=== PATIENT | female | born 1940 | race Caucasian/White ===

== ENCOUNTER 2021-03-14 22:49 | Inpatient (IN) | payer OTHER ==
[~2021-03-14] VITALS: Ht 154.9 cm; Wt 59.4 kg
--- NOTE | ~2021-03-14 | EMS ---
[address] [address] EMS Patient Care Report Name: TONG TOTH Room #: REG SHEA Hearn#: [id number] Admission: 03/14/21 Attend Phys: Discharge: Date of : 36 Report #: [id number] THIS REPORT FOR: //name// Report Transmitted: 03/14/2021 22:53 EMS Care Summary [place], [place]/[facility] Incident [id number] @ 03/14/2021 22:05 Incident Location [address] [place] [address] Patient TONG TOTH Female, 80 Years 1940 Patient Address [address] [place] [address] Patient History Hypertension (HTN),Cardiac Condition - Other,Atrial Fibrillation, Patient Allergies No known allergies, Patient Medications Pravastatin, Diltiazem, Lisinopril, Digoxin, Carvedilol, Warfarin, Chief Complaint WEAKNESS Disposition Transported No Lights/[place] Dispatch Reason Chest Pain (Non-Traumatic) Transported To [facility] Narrative UPON ARRIVAL PT SUPINE IN BED CONSCIOUS AND ALERT. PT HAS BEEN INCREASINGLY WEAK FOR A MONTH NOW. IT HAS BECOME WORSE THE PAST 2 DAYS. PT UNABLE TO GET OUT OF BED WITHOUT FAMILY ASSISTANCE. PT HAS ALSO BEEN HAVING DRY HEAVES TODAY AND HASN'T EATEN ANYTHING. PT HAS A HX OF A-FIB AND IS CURRENTLY AFIB RVR. PT HAS [address] [address] EMS Patient Care Report Name: TONG TOTH Room #: REG [facility]#: [id number] Admission: 03/14/21 Attend Phys: Discharge: Date of : 38 Report #: [id number] BEEN OUT OF ALL OF HER MEDICATIONS FOR OVER A MONTH. PT WILL HAVE CHEST PAIN ON AND OFF AND WILL BE SOB ON AND OFF. PT CURRENTLY NOT C/O EITHER. PT CARRIED TO COT VIA HEAD TENNIS COACH. TRANSPORTED Initial Vitals @22:19P: 148,CO: 1,SpO2: 94, @22:17P: 137,SpO2: 94, @22:21P: 169,SpO2: 93, @22:42P: 195,BP: 149/85,CO: 1,SpO2: 91, @22:16P: 144,CO: 0,SpO2: 92, @22:17P: 157,SpO2: 94, @22:30P: 177,SpO2: 88, @22:28P: 153,SpO2: 84, @22:34P: 160,BP: 113/73,Glucose: 129,SpO2: 95, @22:14P: 167,R: 20,BP: 141/92,Pain: 0/10,GCS: 15,CO: 0,SpO2: 92,Revised Trauma: 12, Assessments @22:15MENTAL:Person Oriented,Event Oriented,Place Oriented,Time Oriented,SKIN:HEENT:Head/Face: No Abnormalities,LUNG SOUNDS:General: Nausea,ABDOMEN:General: Nausea,PELVIS//GI:EXTREMITIES:Left Leg: Weakness,Right Leg: Weakness,Left Arm: No Abnormalities,Right Arm: No Abnormalities,PULSE:Radial: 1+ Thready,NEURO:No Abnormalities, Impression Generalized Weakness Procedures @22:17 12-Lead ECG Response: UnchangedFailed @22:19 12-Lead ECG Response: UnchangedSucceeded @22:30 IV Therapy - Saline Lock 10cc (22 ga) Site: Hand-Left Response: UnchangedSucceeded @22:16 3-Lead ECG Response: UnchangedSucceeded Timeline 22:03,Call Received 22:03,Dispatch Notified 22:05,Dispatched 22:07,En Route 22:10,On Scene 22:11,At Patient 22:14,BP: 141/92 M,PULSE: 167,RR: 20 R,SPO2: 92 Ox,ETCO2: ,BG: ,PAIN: 0,GCS: 15, 22:16,3-Lead ECG,Response: UnchangedSucceeded, 22:16,BP: / M,PULSE: 144,RR: R,SPO2: 92 Ox,ETCO2: ,BG: ,PAIN: ,GCS: , [facility] [address] [place] [address] EMS Patient Care Report Name: TONG TOTH Room #: REG [facility].R.#: [id number] Admission: 03/14/21 Attend Phys: Discharge: Date of : 36 Report #: [id number] 22:17,BP: / M,PULSE: 157,RR: R,SPO2: 94 Ox,ETCO2: ,BG: ,PAIN: ,GCS: , 22:17,12-Lead ECG,Response: UnchangedFailed, 22:17,BP: / M,PULSE: 137,RR: R,SPO2: 94 Ox,ETCO2: ,BG: ,PAIN: ,GCS: , 22:19,12-Lead ECG,Response: UnchangedSucceeded, 22:19,BP: / M,PULSE: 148,RR: R,SPO2: 94 Ox,ETCO2: ,BG: ,PAIN: ,GCS: , 22:21,BP: / M,PULSE: 169,RR: R,SPO2: 93 Ox,ETCO2: ,BG: ,PAIN: ,GCS: , 22:28,BP: / M,PULSE: 153,RR: R,SPO2: 84 Ox,ETCO2: ,BG: ,PAIN: ,GCS: , 22:30,IV Therapy - Saline Lock 10cc 22 ga Site: Hand-Left,Response: UnchangedSucceeded, 22:30,BP: / M,PULSE: 177,RR: R,SPO2: 88 Ox,ETCO2: ,BG: ,PAIN: ,GCS: , 22:33,Depart Scene 22:34,BP: 113/73 M,PULSE: 160,RR: R,SPO2: 95 Ox,ETCO2: ,B,PAIN: ,GCS: , 22:42,BP: 149/85 M,PULSE: 195,RR: R,SPO2: 91 Ox,ETCO2: ,BG: ,PAIN: ,GCS: , 22:45,At Destination 23:02,Call Closed Disclaimer v1.1 Copyright 2020 [employer] This EMS Care Summary contains data elements from the applicable legal record (which may be displayed differently). It is designed to provide pertinent information for the following purposes: continuity of care, clinical quality, and state data reporting. The complete legal record is available to ED staff and administrators of the receiving hospital in [employer] Patient Tracker. All data is provided "as is."
[~2021-03-14 22:49] MED LIST: ACETAMINOPHEN325 M1 PO; ALDACTONE25 MG PO; ASPIRIN EC325 M1; ASPIRIN EC325 M1 PO; ASPIRIN EC81 M1 PO; CARDIZEM CD120 MG PO; CARVEDILOL6.25 MG PO; CEFTIN 250 MG250 MG PO; COLACE 100 MG100 MG PO; COREG6.25 MG PO; COUMADIN 3 MG TA3 MG PO; DIGOXIN125 MCG PO; FUROSEMIDE 40 M40 M1 PO; LANOXIN 0.120.125 M1 PO; LISINOPRIL2.5 MG PO; NOHOMEMEDICATIONS; PRAVACHOL 20 MG20 M1 PO; PRAVACHOL20 MG PO; PRAVACHOL40 MG PO; PRINIVIL5 MG PO; ZOFRAN 4 MG ORAL4 MG PO
[2021-03-14 22:51] VITALS: BP 127/94
[2021-03-14 23:52] LABS: URINE BILIRUBIN 2+ (Negative); URINE BLOOD NEGATIVE (Negative); URINE CLARITY CLEAR; URINE COLOR YELLOW; URINE GLUCOSE-RANDOM* NEGATIVE (Negative); URINE KETONES NEGATIVE (Negative); URINE LEUKOCYTES-REFLEX NEGATIVE (Negative); URINE NITRITE-REFLEX NEGATIVE (Negative); URINE PROTEIN (DIPSTICK) TRACE (Negative); URINE SPECIFIC GRAVITY >= 1.030 (1.005-1.035)
[2021-03-14 23:54] LABS: ABSOLUTE NEUTROPHILS 12.2 thou/uL (1.4-8.2); HEMATOCRIT 52.3 % (37.0-47.0); HEMOGLOBIN 16.5 gm/dL (12.0-15.0); MCHC 31.5 g/dL (28.0-37.0); MCV 98.5 fL (80.0-100.0); MONOCYTES 7.5 % (1.0-8.0); PLATELET COUNT 130 thou/uL (150-400); POLYS 89.5 % (36.0-66.0); RBC 5.31 mil/uL (4.20-5.00); RDW 15.6 % (10.5-14.5); WBC 13.6 thou/uL (4.0-11.0)
[2021-03-15] VITALS (7 sets, daily range): BP systolic 101–131; BP diastolic 53–71
[2021-03-15 00:35] LABS: INR 2.09
[2021-03-15 00:43] LABS: ALBUMIN 2.9 g/dL (3.4-5.0); CALCIUM 8.8 mg/dL (8.5-10.1); CREATININE 1.9 mg/dL (0.6-1.0); MAGNESIUM 2.5 mg/dL (1.8-2.4); TOTAL BILIRUBIN 5.5 mg/dL (0.2-1.0); TOTAL PROTEIN 6.8 g/dL (6.4-8.2)
[2021-03-15] MEDS ORDERED: WARFARIN SODIUM4 MG PO (01:39)
[2021-03-15] MEDS ORDERED: DIGOX250 MCG PO (01:39)
[2021-03-15 03:34] LABS: CALCIUM 8.8 mg/dL (8.5-10.1); CREATININE 1.7 mg/dL (0.6-1.0)
[2021-03-15 03:37] LABS: POTASSIUM 5.8 mmol/L (3.5-5.1)
--- NOTE | 2021-03-15 08:02 | NUR ---
PATIENT IS A NEW ADMISSION TO THE UNIT THIS SHIFT. SHE ARRIVED VIA CART FROM THE ER AND WAS TRANSFERRED TO THE BED WITHOUT INCIDENT. PATIENT IS FULLY ALERT AND ORIENTED AND ABLE TO PARTICIPATE IN ADMISSION. PATIENT EXHIBITS ACCELERATED ATRIAL FIB ON THE MONITOR AND HAS BEEN ON CARDIZEM GTT SINCE ARRIVING TO THE UNIT. ONE TIME ORDER OF LOPRESSOR GIVEN TO LIMITED EFFECTIVENESS. NURSING IS UNABLE TO OBTAIN SECOND IV ACCESS AND HAS CONSULTED IV TEAM. NURSE TO COMPLETE ADMISSION AND INITIATE PLAN OF CARE.
[2021-03-15 08:49] LABS: HEMATOCRIT 49.1 % (37.0-47.0); HEMOGLOBIN 15.6 gm/dL (12.0-15.0); MCH 30.9 pg (26.0-34.0); MCHC 31.7 g/dL (28.0-37.0); MCV 97.3 fL (80.0-100.0); RBC 5.04 mil/uL (4.20-5.00); RDW 15.2 % (10.5-14.5); WBC 13.1 thou/uL (4.0-11.0)
[2021-03-15 09:07] LABS: CREATININE 1.7 mg/dL (0.6-1.0)
[2021-03-15 09:13] LABS: CHOLESTEROL 129 mg/dL (<200); HDL CHOLESTEROL 11 mg/dL (>40); LDL CHOLESTEROL 90 mg/dL (<100); TC:HDL 11.7 Ratio (Not establshd); TRIGLYCERIDE 140 mg/dL (<150); VLDL 28 mg/dL (<40)
[2021-03-15 09:20] LABS: POTASSIUM 4.4 mmol/L (3.5-5.1)
--- NOTE | 2021-03-15 09:59 | EKG ---
[place] [address] [facility] [place] [address] ELECTROCARDIOGRAM REPORT Name: TONG TOTH Room #: 213-P ADM IN M.R.#: [id number] Admission: 03/15/21 Attend Phys: Akil Martin MD Discharge: Date of : 38 Report #: [id number] [facility] ED Test Date: 2021-03-14 Test Time: 22:54:22 Pat Name: TONG TOTH Department: Room: 213 Gender: F Frame Opener: riki : 1940 Requested By: Carole Todd Order Number: [id number] MD: Bernabe Alfredo Measurements Intervals [place] Rate: 174 P: -70 ME: 74 QRS: -113 QRSD: 133 T: 45 QT: 305 QTc: 519 Interpretive Statements Atrial fibrillation RBBB and LAFB Compared to ECG 03/10/2013 08:38:47 Left anterior fascicular block now present T-wave abnormality no longer present Possible ischemia no longer present Electronically Signed On 03-15-2021 9:58:58 PUBLIC RELATIONS DIRECTOR by Bernabe Alfredo [email or web address] <ELECTRONICALLY SIGNED> By: Bernabe Alfredo MD 03/15/21 0958 Bernabe Alfredo MD /MARÍA
[2021-03-15 15:58] LABS: APTT 38.3 Seconds (24.5-32.8)
[2021-03-15 17:06] LABS: FOLIC ACID 15.4 ng/mL (8.6-58.9)
--- NOTE | 2021-03-15 18:28 | NUR ---
PT REMAINS ON CARDIZEM FOR AFIB WITH A RATE GREATER THAN 100. CARDIZEM IS RUNNING AT 20. PT STATED TO PHYSICAL THERAPY TODAY THAT SHE WAS SEEING NAKED PEOPLE IN THE TREES OUTSIDE HER WINDOW. OTHERWISE PT REMAINED ALERTAND ANSWERED QUESTIONS APPROPRIATELY. PHYSICIAN WAS NOTIFIED.
[2021-03-15 22:06] LABS: CA 125 564.8 U/mL (0.0-38.1)
[2021-03-15 23:06] LABS: T4 (THYROXINE) 4.7 ug/dL (4.5-12.0)
[2021-03-16 02:15] LABS: CALCIUM 8.4 mg/dL (8.5-10.1); CREATININE 1.4 mg/dL (0.6-1.0)
[2021-03-16 02:17] LABS: ALBUMIN 2.4 g/dL (3.4-5.0); DIRECT BILIRUBIN 4.3 mg/dL (<0.1-0.2); TOTAL BILIRUBIN 5.7 mg/dL (0.2-1.0); TOTAL PROTEIN 5.3 g/dL (6.4-8.2)
[2021-03-16 02:21] LABS: POTASSIUM 3.1 mmol/L (3.5-5.1)
[2021-03-16 04:06] VITALS: BP 114/71
[2021-03-16 06:07] LABS: CERULOPLASMIN 39.5 mg/dL (19.0-39.0)
[2021-03-16 07:30] VITALS: BP 122/64
--- NOTE | 2021-03-16 10:27 | HC ---
[facility] [place] [address] CONSULTATION Name: TONG TOTH Room #: 213-P ADM IN ..#: [id number] Admission: 03/15/21 Attend Phys: Akil Martin MD Discharge: Date of : 38 Report #: [id number] THIS REPORT FOR: cc: [facility] - Clinic physician unknown [facility] - Clinic physician unknown Shai Chacko MD ~ cc: Akil Martin MD DATE OF SERVICE: 03/15/2021 HISTORY OF PRESENT ILLNESS: The patient is an 80-year-old female who was admitted with increasing shortness of breath. She is a fairly good historian. Apparently has not been taking any of her medications for the last 10 months, has not seen a physician for a long period of time as well. She has a history of coronary artery disease, status post CABG, previous mitral valve repair in the past. She was noted to be in AFib with RVR. Here, she is on Cardizem. At this time, Cardiology is following. She also has lower extremity edema. Reason for GI consultation is elevated liver function tests. The patient denies any abdominal pain in general. Apparently, she has had a few episodes of nausea and vomiting recently and somewhat decreased appetite. Her bilirubin is 5.5. She denies any history of liver disease. Her last bilirubin to compare was 1.4 in 2012. She denies any history of alcohol. A CT scan of her abdomen and pelvis was performed on admission. Gallbladder showed cholelithiasis, normal caliber bile ducts were seen. There is a cystic lesion arising in the pancreas in the pancreatic body, 2.8 cm in size. Changes of thickening of the urinary bladder consistent with cystitis, also noted. Diffuse anasarca seen. Diverticulosis, no evidence of diverticulitis. Again, the patient denies any right upper quadrant abdominal pain after eating. She states her bowel movements have been fairly normal. Denies any obvious blood in her stools. She is currently on 2 liters of nasal cannula oxygen. She is not on oxygen at home. CT of the chest shows bilateral small pleural effusions, cardiomegaly is noted. An ultrasound of the abdomen has been ordered today. Bilateral lower extremity Dopplers, no evidence of DVT. PAST MEDICAL HISTORY: Coronary artery disease, history of CABG x 4, mitral valve repair in the past, chronic renal insufficiency, AFib, history of hyperlipidemia, hypertension. MEDICATIONS: In the past, Coreg, Cardizem, lisinopril, Pravachol, warfarin; however, the patient apparently has not been taking any medications again for the last 10 months. REVIEW OF SYSTEMS: As per HPI. FAMILY HISTORY: Negative for colon cancer. [address] [address] CONSULTATION Name: TONG TOTH Room #: 213-P [facility] IN ..#: [id number] Admission: 03/15/21 Attend Phys: Akil Martin MD Discharge: Date of : 38 Report #: [id number] SOCIAL HISTORY: She denies any tobacco or alcohol use. PHYSICAL EXAMINATION: VITAL SIGNS: Temperature is 36.5, pulse 62, blood pressure 128/53, respiratory rate is 20. GENERAL: She is alert, in no acute distress. HEENT: Sclerae, mildly icteric. Oropharynx clear. NECK: Supple, without lymphadenopathy. CARDIOVASCULAR: Regular rate. CHEST: With decreased breath sounds in the bases bilaterally. ABDOMEN: Soft. She is nontender, nondistended. Normoactive bowel sounds. EXTREMITIES: +1-2 pitting edema of the lower extremities bilaterally. LABORATORY DATA: WBC is 13.1, hemoglobin 15.6, platelet count is 115. INR is 2.0. Sodium 129, potassium 4.4, chloride 96, bicarbonate 19, BUN 67, creatinine 1.7, glucose 164. Lactic acid level 2.8. Total bilirubin 5.5, direct 4.3, AST is 130, ALT 115. 2+ bilirubin, wbc's 6-15, bacteria 1 to 9. ASSESSMENT AND PLAN: Elevated liver function tests. CT showing evidence of cholelithiasis, bile duct is not dilated, may need to consider MRCP in the near future for further evaluation to rule out common bile duct stone. Ultrasound has been ordered and is pending at this time. The patient denies any history of abdominal pain. No history of liver disease. She may have chronic liver disease, as her INR is also elevated and has apparently not been taking Coumadin recently. Also noted was a pancreatic cystic lesion. We will obtain further labs. MRI can be helpful as well for further evaluation. This involves the body of the pancreas and again the common bile duct does not appear to be dilated on the CT. Agree with antibiotics and monitoring liver function tests at this time. We will continue to follow. Thank you for allowing me to participate in her care. <ELECTRONICALLY SIGNED> By: Shai Chacko MD 03/16/21 1027 [id number] [id number] Shai Chacko MD /nt
[2021-03-16 11:06] LABS: CEA 4.3 ng/mL (0.0-4.7)
[2021-03-16 11:30] VITALS: BP 108/56
--- NOTE | 2021-03-16 11:45 | NUR ---
TITRATED CARDIZEM FROM 20 TO 15 AT 0830. HEART RATE MAINTAINED 90'S TO 100. TITRATED CARDIZEM FROM 15 TO 10 AT 1000AM. HEART RATE HAS MAINTAINED. WILL CONTINUE TO MONITOR.
[2021-03-16 16:00] VITALS: BP 112/60
--- NOTE | 2021-03-16 17:27 | NUR ---
PT RESTED IN BED SLEEPING ON AND OFF ALL SHIFT. EASY TO AROUSE, ANSWERS PERSON, TIME QUESTIONS. GETS CONFUSED ON LOCATION. PT ALSO CONTINUES TO HAVE VISUAL HALUCINATIONS. MORALES CATHETER URINE STOPPED, REQUIRING IRRIGATION NO FURTHER ISSUES FROM MORALES.
[2021-03-16 20:15] VITALS: BP 119/52
--- NOTE | 2021-03-16 21:05 | NUR ---
UPON INITIAL ASSESSMENT PATIENT CONFUSED AND UPSET "WANTING TO BE LEFT ALONE". PATIENT DID ALLOW NURSE TO COMPLETE QUICK ASSESSMENT AND THEN STATED SHE "WANTS TO BE LEFT ALONE". PATIENT IS CONFUSED AND NURSE MADE SURE ENVIROMENT IS SAFE.
[2021-03-16 22:29] VITALS: BP 101/70
--- NOTE | 2021-03-16 23:09 | NUR ---
PATIENTS SON CLAYTON CALLED UNIT TO INQUIRE ABOUT MOTHERS CONDITION. NURSE GAVE FAMILY UPDATED INFORMATION REGARDING HER STATUS. PATIENTS SON WISHES TO BE CALLED BY PROVIDER FOR MORE IN DEPTH REPORT. NURSE TO RELAY REQUEST TOMORROW DURING END OF SHIFT REPORT. PATIENTS SON ALSO ADAMANT THAT SISTER DK NOT BE GIVEN INFORMATION REGARDING MOTHERS STATUS DUE TO ESTRANGEMENT. PATIENT IS ALERT TO SELF ONLY AND IS UNABLE TO VOICE DESIRE. NURSE TO RELAY THIS INFORMATION TO ONCOMING NURSE WELL.
[2021-03-17] VITALS (8 sets, daily range): BP systolic 94–118; BP diastolic 60–82
--- NOTE | 2021-03-17 02:54 | NUR ---
PATIENTS CARDIZEM GTT STOPPED AT 0110 DUE TO SBP < 100 AND PATIENT STATING "DIZZINESS". PATIENT STILL IN ATRIAL FIB WITH RATE CONTROLLED. PROVIDER CONTACTED WITH ALBUMIN GIVEN.
[2021-03-17 04:48] LABS: ABSOLUTE NEUTROPHILS 10.8 thou/uL (1.4-8.2); BASOPHILS 0.8 % (0.0-2.0); EOSINOPHILS 0.1 % (0.0-3.0); HEMATOCRIT 42.9 % (37.0-47.0); HEMOGLOBIN 14.1 gm/dL (12.0-15.0); LYMPHOCYTES 1.2 % (24.0-44.0); MCH 31.4 pg (26.0-34.0); MCHC 32.8 g/dL (28.0-37.0); MCV 95.7 fL (80.0-100.0); MONOCYTES 7.1 % (1.0-8.0); PLATELET COUNT 51 thou/uL (150-400); POLYS 90.8 % (36.0-66.0); RBC 4.48 mil/uL (4.20-5.00); RDW 15.3 % (10.5-14.5); WBC 11.9 thou/uL (4.0-11.0)
[2021-03-17 05:12] LABS: INR 1.53; PROTIME 16.3 Seconds (10.5-12.1)
[2021-03-17 05:46] LABS: CALCIUM 8.4 mg/dL (8.5-10.1); CREATININE 1.6 mg/dL (0.6-1.0); MAGNESIUM 1.9 mg/dL (1.8-2.4); PHOSPHORUS 1.9 mg/dL (2.5-4.9); POTASSIUM 3.4 mmol/L (3.5-5.1); TOTAL BILIRUBIN 5.5 mg/dL (0.2-1.0); TOTAL PROTEIN 6.3 g/dL (6.4-8.2)
--- NOTE | 2021-03-17 11:17 | NUR ---
Assumed care of pt this AM. Pt at beginning of shift oriented x3, up to eat breakfast. On 6L NC, AFib on the monitor. Pt denies any pain but frequently is grabbing abd & writhing in bed. Towards lunch, pt started to become restless, confused. Not currently pulling on any lines & is keeping O2 in appropriately. Pt keeps stating that she is "hot". 1500mL fluid restriction in place. Provider notified. Provider notified that son, Serge, wants to speak w/ Dr in regards to care. Dr. Flynn called son & left for call back. Will continue frequent observation.
[2021-03-17 11:35] LABS: BE(vivo) 0.1 mmol/L (-2 to +3); HCO3 23.3 mmol/L (22.0-26.0); PCO2 33.8 mmHg (35.0-45.0); PO2 83.5 mmHg (80.0-100.0); pH 7.456 (7.360-7.450); sO2 96.8 % (92.0-98.0)
[2021-03-17 14:10] LABS: HEMATOCRIT 40.3 % (37.0-47.0); HEMOGLOBIN 12.7 gm/dL (12.0-15.0); MCH 30.4 pg (26.0-34.0); MCHC 31.6 g/dL (28.0-37.0); MCV 96.3 fL (80.0-100.0); RBC 4.19 mil/uL (4.20-5.00); RDW 15.4 % (10.5-14.5); WBC 12.2 thou/uL (4.0-11.0)
[2021-03-17 14:15] LABS: CALCIUM 7.3 mg/dL (8.5-10.1); CREATININE 1.4 mg/dL (0.6-1.0)
[2021-03-17 14:37] LABS: POTASSIUM 2.7 mmol/L (3.5-5.1)
[2021-03-18 03:51] VITALS: BP 127/79
--- NOTE | 2021-03-18 05:41 | NUR ---
ASSESSMENT DOCUMENTED.PT BEEN RESTING IN NO ACUTE DISTRESS.A/OX3 WITH INTERMITTENT CONFUSION.AFEBRILE.VSS.AFIB/BBB W/CONTROLLED RATE ON MONITOR.ON O2 5L/NC,NO RESP DISTRESS NOTED OR REPORTED.C/O LOWER ABD PAIN,CONTROLLED WITH FENTANYL.MORALES DD DARK YELLOW URINE WITH SEDIMENTS.PT DENIES NAY FURTHER NEEDS.
[2021-03-18 06:25] LABS: ABSOLUTE NEUTROPHILS 11.7 thou/uL (1.4-8.2); BASOPHILS 0.2 % (0.0-2.0); EOSINOPHILS 0.2 % (0.0-3.0); HEMATOCRIT 42.4 % (37.0-47.0); HEMOGLOBIN 13.8 gm/dL (12.0-15.0); LYMPHOCYTES 1.8 % (24.0-44.0); MCH 30.9 pg (26.0-34.0); MCHC 32.5 g/dL (28.0-37.0); MCV 95.3 fL (80.0-100.0); MONOCYTES 6.8 % (1.0-8.0); RBC 4.45 mil/uL (4.20-5.00); RDW 15.2 % (10.5-14.5); WBC 12.8 thou/uL (4.0-11.0)
[2021-03-18 06:39] LABS: ALBUMIN 2.5 g/dL (3.4-5.0); CALCIUM 8.6 mg/dL (8.5-10.1); DIRECT BILIRUBIN 3.1 mg/dL (<0.1-0.2); MAGNESIUM 1.8 mg/dL (1.8-2.4); PHOSPHORUS 2.2 mg/dL (2.5-4.9); TOTAL BILIRUBIN 4.7 mg/dL (0.2-1.0); TOTAL PROTEIN 5.9 g/dL (6.4-8.2)
[2021-03-18 07:20] VITALS: BP 136/73
--- NOTE | 2021-03-18 10:23 | NUR ---
Assumed care of pt this AM. Pt is oriented to self. On 5L NC, sating 98%, will begin titrating down. Afib on the monitor. Plan for MRI MRCP today. Screening tool filled out w/ help of son via phone. Pt continues to be increasingly confused throughout the day. Will continue to monitor frequently.
--- NOTE | 2021-03-18 11:08 | NUR ---
met with son outside of room. Son reports patient resides with him in home. All needs on one level patient uses a cane. Son works nights and weekends patient alone at that time. Patient prev administer own meds, son did not know she stopped taking medications. He reports her health has gone down hill the past month. Her PCP was Dr Harvey but she does not go to the Dr. Son reports he is youngest of 6 he has 5 sisters that do not assist with patients care. He wants to sp with Rn for medical update. 5N to eval therapy evals in process.
[2021-03-18 13:23] LABS: PLATELET COUNT 44 thou/uL (150-400)
--- NOTE | 2021-03-18 13:29 | 2DMMODE ---
[facility] [place] [address] 2 D/M-MODE ECHOCARDIOGRAM Name: TONG TOTH Room #: 213-P ADM IN ..#: [id number] Admission: 03/15/21 Attend Phys: Akil Martin MD Discharge: Date of : 38 Report #: [id number] THIS REPORT FOR: cc: [facility] - Clinic physician unknown [facility] - Clinic physician unknown Bernabe Alfredo MD ~ APPROVED REPORT Study performed: 03/18/2021 09:59:29 EXAM: Comprehensive 2D, Doppler, and color-flow Echocardiogram Patient Location: Bedside Room #: 213 Status: routine BSA: 1.56 HR: 102 bpm BP: 136/73 mmHg Rhythm: Atrial Fibrillation Other Information Study Quality: Adequate Indications Atrial Fibrillation Sepsis Dyspnea CAD 2D Dimensions RVDd: 42.31 mm IVSd: 8.04 (7-11mm) LVOT Diam: 18.18 (18-24mm) LVDd: 43.17 mm PWd: 7.52 (7-11mm) Ascending Ao: 28.67 (22-36mm) LVDs: 34.88 (25-40mm) Left Atrium: 40.98 (27-40mm) Aortic Root: 28.05 mm IVC: 26.00 mm Volumes Left Atrial Volume (Systole) Single Plane 4CH: 104.09 mL Single Plane 2CH: 50.56 mL LA ESV Index: 52.00 mL/m2 Aortic Valve AoV Peak Ruddy.: 0.94 m/s [facility] [address] [place] [address] 2 D/M-MODE ECHOCARDIOGRAM Name: TONG TOTH Room #: 213-P [facility] IN [facility].#: [id number] Admission: 03/15/21 Attend Phys: Akil Martin MD Discharge: Date of : 38 Report #: [id number] AO Peak Gr.: 3.51 mmHg LVOT Max P.40 mmHg LVOT Max V: 0.92 m/s DANIE Vmax: 2.55 cm2 Pulmonary Valve PV Peak Ruddy.: 0.74 m/s PV Peak Gr.: 2.21 mmHg Tricuspid Valve TR Peak Ruddy.: 3.06 m/s TR Peak Gr.: 37.65 mmHg PA Pressure: 48.00 mmHg Left Ventricle The left ventricle is normal size. There is normal left ventricular wall thickness. Left ventricular systolic function is moderate to severely decreased. LVEF is 30-35%. This study is not technically sufficient to allow evaluation of the LV diastolic function due to atrial fibrillation. Right Ventricle Right ventricle is at the upper limits of normal. Atria Left atrium is dilated. Right atrium is dilated. Aortic Valve The aortic valve is normal in structure. No aortic regurgitation is present. There is no aortic valvular stenosis. Mitral Valve The mitral valve is normal in structure. 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 Mild to moderate mitral regurgitation. No evidence of mitral valve stenosis. Tricuspid Valve The tricuspid valve is normal in structure. There is moderate to severe tricuspid regurgitation. Estimated PAP 48 mmHg. There is moderate pulmonary hypertension. Pulmonic Valve The pulmonary valve is normal in structure. Trace pulmonic regurgitation. Great Vessels The aortic root is normal in size. IVC is dilated and collapses <50% with inspiration. [facility] [address] [place] [address] 2 D/M-MODE ECHOCARDIOGRAM Name: TONG TOTH Room #: 213-[facility] IN [facility].#: [id number] Admission: 03/15/21 Attend Phys: Akil Martin MD Discharge: Date of : 36 Report #: [id number] Pericardium There is no pericardial effusion. Pleural effusion is seen. <Conclusion> The left ventricle is normal size. There is normal left ventricular wall thickness. Left ventricular systolic function is moderate to severely decreased. Right ventricle is at the upper limits of normal. Left atrium is dilated. Right atrium is dilated. The aortic valve is normal in structure. 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 Mild to moderate mitral regurgitation. There is moderate to severe tricuspid regurgitation. Estimated PAP 48 mmHg. <ELECTRONICALLY SIGNED> By: Bernabe Alfredo MD 03/18/21 1329 1329 1329 Bernabe Alfredo MD /INF
[2021-03-18 15:30] VITALS: BP 115/45
[2021-03-18 20:45] VITALS: BP 120/76
[2021-03-19] VITALS (7 sets, daily range): BP systolic 129–150; BP diastolic 67–99
[2021-03-19 04:51] LABS: CALCIUM 8.3 mg/dL (8.5-10.1); CREATININE 1.1 mg/dL (0.6-1.0); POTASSIUM 3.7 mmol/L (3.5-5.1)
--- NOTE | 2021-03-19 08:27 | NUR ---
RN WENT IN TO ROOM TO ASSESS THE PATIENT, AT THE TIME, PT APPEARED NORMAL, DID NOT SEEM TO BE IN DISTRESS. RN PROMPTED TO GO INTO PT'S ROOM TO ASSESS DUE TO INCREASED HR AT 140-150s ON THE MONITOR. RN GAVE THE 1200 METOPROLOL 12.5MG IV EARLY AFTER CHECKING PT'S BLOOD PRESSURE, BP 130/70s. RN ALSO HEARD S3 SOUND DURING ASSESSMENT. NO COMPLAINTS FROM PT AT THIS TIME RN NOTIFIED THE NURSE PRACTITIONER ON THIS CASE
[2021-03-19 08:52] LABS: HAV IgM AB (ANTI-HAV IgM) Negative (Negative); HEPATITIS B SURFACE AG Negative (Negative)
[2021-03-19 11:31] LABS: ALBUMIN 2.6 g/dL (3.4-5.0); DIRECT BILIRUBIN 2.3 mg/dL (<0.1-0.2); TOTAL PROTEIN 6.1 g/dL (6.4-8.2)
[2021-03-20 00:05] VITALS: BP 123/89
--- NOTE | 2021-03-20 02:23 | NUR ---
PT IS ORIENTED X2 WITH SOME CONFUSION. LUNGS ARE CLEAR TO DIMINISHED. TURNS SELF IN BED. DENIES ANY PAIN ISSUES. RESTING COMFORTABLY. NOTIFIED CARDIOLOGY HEART RATE 140-170 AFIB UNCONTROLED STARTED ON CARDIZEM DRIP PER DR. DELEON ORDER. RATE NOW CONTROLED AFTER DRIP. ABDOMEN IS SOFT BOWEL SOUNDS ACTIVE X4. CALL LIGHT WITHIN REACH IF NEEDS ASISTANCE PER NURSING
[2021-03-20 04:00] VITALS: BP 125/81
[2021-03-20 04:59] LABS: HEMATOCRIT 42.6 % (37.0-47.0); HEMOGLOBIN 13.8 gm/dL (12.0-15.0); MCHC 32.3 g/dL (28.0-37.0); RBC 4.44 mil/uL (4.20-5.00); RDW 15.6 % (10.5-14.5); WBC 13.2 thou/uL (4.0-11.0)
[2021-03-20 05:15] LABS: ALBUMIN 2.5 g/dL (3.4-5.0); CALCIUM 8.3 mg/dL (8.5-10.1); CREATININE 0.9 mg/dL (0.6-1.0); POTASSIUM 3.7 mmol/L (3.5-5.1); TOTAL BILIRUBIN 3.9 mg/dL (0.2-1.0)
[2021-03-20 07:30] VITALS: BP 124/79
[2021-03-20 12:00] VITALS: BP 125/75
[2021-03-20 14:03] LABS: HEPATITIS C VIRUS AB <0.1
--- NOTE | 2021-03-20 14:38 | NUR ---
ASSUMED CARE OF PT AT 0700 PT IS PLEASANT AND ANSWERED ALL ORIENTATION QUESTIONS APPROPRIATELY PT IS VERY WEAK AND IS A STAND BY X 2 ASSIST FOR SAFETY
[2021-03-20 16:00] VITALS: BP 126/80
--- NOTE | 2021-03-20 17:22 | NUR ---
Pallative care consult for patient. Message to pallative care RN practioner.
[2021-03-20 19:16] VITALS: BP 138/86
--- NOTE | 2021-03-21 04:28 | NUR ---
PT IS ALERT AND ORIENTED X3 WITH SOME CONFUSION. NOTIFEID. DR. LAUREN OF HEART RATE AFIB 134-154 RESTARTED ON CARDIZEM DRIP RATE NOW CONTROL AFTER BOLUS AND DRIP 116 NOW. PT SLEEPING ON AND OFF RESTING. MORALES CATH ARON URINE TO DD. DENIES ANY COMPLAINTS OF PAIN NOTED. CALL LIGHT WITIHIN REACH IF NEEDS ASISSTANCE PER NURSING.
[2021-03-21 04:50] VITALS: BP 120/74
[2021-03-21 07:40] VITALS: BP 126/75
--- NOTE | 2021-03-21 08:18 | EKG ---
[place] [address] [facility] [place] [address] ELECTROCARDIOGRAM REPORT Name: TONG TOTH Room #: 213- ADM IN M.R.#: [id number] Admission: 03/15/21 Attend Phys: Akil Martin MD Discharge: Date of : 38 Report #: [id number] [facility] Test Date: 2021-03-21 Test Time: 07:17:45 Pat Name: TONG TOTH Department: Room: 213 Gender: F Headmaster/Mistress: FSCHWALBE : 1940 Requested By: Bernabe Alfredo Order Number: [id number] MD: Raffi Strong Measurements Intervals [place] Rate: 114 P: MI: QRS: 37 QRSD: 130 T: 32 QT: 355 QTc: 489 Interpretive Statements Atrial fibrillation Ventricular premature complex Right bundle branch block Compared to ECG 03/14/2021 22:54:22 Ventricular premature complex(es) now present Electronically Signed On 03-21-2021 8:17:38 ACADEMIC COMPUTING DIRECTOR by Raffi Strong [email or web address] <ELECTRONICALLY SIGNED> By: Raffi Strong MD, [facility] 03/21/21816 6 6 Raffi Strong MD, [facility] /EPI
[2021-03-21 10:57] LABS: POTASSIUM 3.8 mmol/L (3.5-5.1)
[2021-03-21 11:18] VITALS: BP 117/77
[2021-03-21 15:30] VITALS: BP 118/81
[2021-03-21 19:33] VITALS: BP 120/75
[2021-03-22 04:54] VITALS: BP 134/90
[2021-03-22 06:47] LABS: CALCIUM 8.3 mg/dL (8.5-10.1); CREATININE 0.8 mg/dL (0.6-1.0); INR 1.33; POTASSIUM 3.9 mmol/L (3.5-5.1); PROTIME 14.3 Seconds (10.5-12.1)
[2021-03-22 06:53] LABS: ALBUMIN 2.4 g/dL (3.4-5.0); DIRECT BILIRUBIN 1.9 mg/dL (<0.1-0.2); TOTAL BILIRUBIN 3.2 mg/dL (0.2-1.0)
[2021-03-22 07:55] VITALS: BP 120/79
--- NOTE | 2021-03-22 08:31 | NUR ---
pt resting quietly with oxygen tubing replaced frequently, no c/o pain, repositoned as needed, roberts with adequate out put, vss, hr remains afib with controlled rate, report given t0 next shift to con't ppoc.
[2021-03-22 11:10] VITALS: BP 129/82
[2021-03-22 15:25] VITALS: BP 128/89
--- NOTE | 2021-03-22 15:30 | NUR ---
Pallative care and acute rehab have evaled patient. Patient accepted to acute rehab [facility]. Dr Jacobs sp with son who wants rehab for patient. Patient not stable to dc to 5N today. If patient stable to dc overweekend call [phone] to contact on-call for an admission.
[2021-03-22 20:15] VITALS: BP 121/88
[2021-03-23 04:45] VITALS: BP 137/88
[2021-03-23 07:24] VITALS: BP 131/84
--- NOTE | 2021-03-23 10:27 | HC ---
[facility] [place] [address] CONSULTATION Name: TONG TOTH Room #: 213-P ADM IN .R.#: [id number] Admission: 03/15/21 Attend Phys: Akil Martin MD Discharge: Date of : 38 Report #: [id number] THIS REPORT FOR: cc: [facility] - Clinic physician unknown [facility] - Clinic physician unknown Leroy Garcia MD ~ DATE OF SERVICE: 03/18/2021 HISTORY OF PRESENT ILLNESS: The patient is an 80-year-old white female admitted with weakness and mental status changes. She is noted to have atrial fibrillation with rapid ventricular response, sepsis secondary to community-acquired pneumonia, elevated BNP, respiratory failure secondary to pneumonia versus congestive heart failure along with bilateral pleural effusions. She is noted to have acute renal insufficiency superimposed on chronic kidney disease. She has a toxic metabolic encephalopathy. She has elevated liver function tests and has been seen by GI with recommendations for an MRI, MRCP with contrast as well as an ammonia level. Cardiology has ordered an echocardiogram. Speech therapy is following regarding swallowing safety issues. We are seeing her in rehabilitation medicine consultation. PAST MEDICAL HISTORY: Atrial fibrillation, on Coumadin, although she has not been on any of her medications for the past 10 months as she is noted to be scared to go outside secondary to COVID. She has a history of hypertension, acute renal insufficiency superimposed on chronic kidney disease, coronary artery disease with prior coronary artery bypass grafting and mitral valve replacement. HABITS: No history of tobacco or alcohol abuse. MEDICATIONS: Please see the full medication listing. ALLERGIES: HEPARIN, NOTED TO HAVE HIT, 03/04/2013. SOCIAL HISTORY: She lives in a single story house with her son, 2 steps to enter with bilateral handrails. Son works nights and lives with her during the day. She premorbidly utilized a cane. He has noted a gradual decline in her mentation, that she has been sleeping a lot, especially through February. REVIEW OF SYSTEMS: Did not offer any current complaints of chest pain, shortness of breath or abdominal discomfort. PHYSICAL EXAMINATION: GENERAL: An 80-year-old slender white female in no obvious distress. She knew she was in the hospital, but was uncertain which one. She will follow basic 1-step commands. VITAL SIGNS: Temperature 36.5, pulse 91, respirations 19, blood pressure [facility] [address] [place] [address] CONSULTATION Name: TONG TOTH Room #: 213- ADM IN .R.#: [id number] Admission: 03/15/21 Attend Phys: Akil Martin MD Discharge: Date of : 38 Report #: [id number] 136/73. NEUROLOGIC: She is on 5 liters nasal cannula. EXTREMITIES: Functional range of motion of the upper extremities, I would grade her strength at a 3+ to 4-/5. DTRs are trace to 1. Lower extremities, no focal calf swelling, functional range of motion with strength grade 3+ to 4-/5. DTRs are trace to 1. She has been mod assist coming to stand and has ambulated 20 feet min assist with a front-wheeled walker. Lower body dressing is max assist. She is on a mechanical soft, thin liquid diet, but Speech Therapy is planning on reassessing her over the lunch hour. ASSESSMENT: An 80-year-old white female with the following problem list: 1. Toxic metabolic encephalopathy. 2. Medical complexity with generalized debilitation. 3. Sepsis secondary to community-acquired pneumonia. 4. Respiratory failure secondary to pneumonia and congestive heart failure with bilateral pleural effusions. 5. Acute renal insufficiency superimposed on chronic kidney disease. 6. Elevated liver function tests with evaluation including an MRI with MRCP and ammonia level underway with Gastroenterology involved. 7. Echocardiogram pending with workup by Cardiology. 8. Prior history of ischemic cardiomyopathy. 9. Hypertension. PLAN: Discussed with the patient's son. Would anticipate she should be a candidate for an acute in-hospital inpatient rehabilitation stay to maximize her functional independence as she further medically stabilizes. Son appears amenable. We will continue to follow along with you. At this point, we would anticipate an acute inpatient rehabilitation transfer to the [address] [place] [address] [facility] when medically cleared. <ELECTRONICALLY SIGNED> By: Leroy Garcia MD 03/23/21 1027 1039 [id number] Leroy Garcia MD /nt
[2021-03-23 11:10] VITALS: BP 119/69
[2021-03-23 11:38] LABS: CALCIUM 8.4 mg/dL (8.5-10.1)
[2021-03-23 11:41] LABS: POTASSIUM 4.4 mmol/L (3.5-5.1)
[2021-03-23] MEDS ORDERED: PACERONE 200 M200 M1 PO (11:46)
[2021-03-23] MEDS ORDERED: METOPROLOL SUCC50 MG PO (11:46)
[2021-03-23] MEDS ORDERED: CEFDINIR300 MG PO (11:46)
[2021-03-23 15:15] VITALS: BP 131/87
[2021-03-23 20:15] VITALS: BP 123/84
[2021-03-24 03:53] LABS: CALCIUM 8.1 mg/dL (8.5-10.1); CREATININE 0.9 mg/dL (0.6-1.0); POTASSIUM 4.5 mmol/L (3.5-5.1)
[2021-03-24 04:45] VITALS: BP 118/77
[2021-03-24 07:58] VITALS: BP 137/76
[2021-03-24 11:21] VITALS: BP 107/73
--- NOTE | 2021-03-24 11:25 | NUR ---
ASSESSMENT CHARTED. PT ALERT AND ORIENTED. VSS. SEEN BY DR. QUIJANO. ORDERS GIVEN TO DISCHARGE PT TO REHABU [address] [place] [address]. PT AND FAMILY NOTIFIED. REPORT CALLED IN TO THE NURSE.
== END 2021-03-24 12:42 | DRG 871 ==
LOC: ER 22:49 → EROBS 03-15 03:01 → 2N 03-15 03:01
PROVIDERS: Emergency Medicine; Hospitalist; Internal Medicine; Internal Medicine Cardiovascular Disease; Internal Medicine Gastroenterology; Nurse Practitioner Family; Physician Assistant; Specialist; Surgery; ADMIT Hospitalist; ATTEND Hospitalist
PROC: 02HV33Z Insertion of Infusion Device into Superior Vena Cava, Percutaneous Approach (ICD-10-PCS; principal; 2021-03-15)
DX: A41.9 Sepsis, unspecified organism (principal); J18.9 Pneumonia, unspecified organism; J96.01 Acute respiratory failure with hypoxia; G92.8 Other toxic encephalopathy; N17.9 Acute kidney failure, unspecified; D68.9 Coagulation defect, unspecified; I48.21 Permanent atrial fibrillation; K86.2 Cyst of pancreas; E87.1 Hypo-osmolality and hyponatremia; I13.0 Hypertensive heart and chronic kidney disease with heart failure and stage 1 through stage 4 chronic kidney disease, or unspecified chronic kidney disease; I50.9 Heart failure, unspecified; Z20.822 Contact with and (suspected) exposure to COVID-19; I25.10 Atherosclerotic heart disease of native coronary artery without angina pectoris; I25.5 Ischemic cardiomyopathy; E78.5 Hyperlipidemia, unspecified; R62.7 Adult failure to thrive; R65.20 Severe sepsis without septic shock; Z60.2 Problems related to living alone; R74.01 Elevation of levels of liver transaminase levels; E87.5 Hyperkalemia; I05.9 Rheumatic mitral valve disease, unspecified; R53.81 Other malaise; N18.30 Chronic kidney disease, stage 3 unspecified; K80.20 Calculus of gallbladder without cholecystitis without obstruction; F03.90 Unspecified dementia, unspecified severity, without behavioral disturbance, psychotic disturbance, mood disturbance, and anxiety; R13.10 Dysphagia, unspecified; D69.6 Thrombocytopenia, unspecified; E87.6 Hypokalemia; R41.841 Cognitive communication deficit; Z88.8 Allergy status to other drugs, medicaments and biological substances; Z95.1 Presence of aortocoronary bypass graft; Z82.49 Family history of ischemic heart disease and other diseases of the circulatory system; Z91.19 Patient's noncompliance with other medical treatment and regimen; Z95.2 Presence of prosthetic heart valve
CPT/HCPCS: 10081; 27000

== ENCOUNTER 2021-03-19 09:16 | Inpatient (IN) | payer OTHER ==
[~2021-03-19] VITALS: Ht 157.5 cm; Wt 56.5 kg
[~2021-03-19 09:16] MED LIST changes: +DIGOX250 MCG PO; +WARFARIN SODIUM4 MG PO
[2021-03-23 04:49] LABS: INR 1.26; PROTIME 13.6 Seconds (10.5-12.1)
[2021-03-23 04:59] LABS: ALBUMIN 2.4 g/dL (3.4-5.0); CALCIUM 8.2 mg/dL (8.5-10.1); CREATININE 0.9 mg/dL (0.6-1.0); DIRECT BILIRUBIN 1.7 mg/dL (<0.1-0.2); MAGNESIUM 1.9 mg/dL (1.8-2.4); POTASSIUM 4.3 mmol/L (3.5-5.1); TOTAL BILIRUBIN 2.8 mg/dL (0.2-1.0); TOTAL PROTEIN 6.2 g/dL (6.4-8.2)
[2021-03-23 05:11] LABS: HEMATOCRIT 44.3 % (37.0-47.0); HEMOGLOBIN 14.5 gm/dL (12.0-15.0); MCHC 32.7 g/dL (28.0-37.0); MCV 94.9 fL (80.0-100.0); RBC 4.67 mil/uL (4.20-5.00); RDW 15.1 % (10.5-14.5); WBC 13.6 thou/uL (4.0-11.0)
[2021-03-23] MEDS ORDERED: METOPROLOL SUCC50 MG PO (11:46)
[2021-03-23] MEDS ORDERED: PACERONE 200 M200 M1 PO (11:46)
[2021-03-23] MEDS ORDERED: CEFDINIR300 MG PO (11:46)
[2021-03-24 13:10] VITALS: BP 151/85
--- NOTE | 2021-03-24 13:10 | NUR ---
PT ARRIVED VIA W/C TO ROOM. PT HAS OXYGEN ON 2L NC. PT DENIES ANY SOB. PT SLEEPY AND DID AWAKE FOR A FEW QUESTIONS ON ADMIT. PT VERY PLEASANT. PT ALERT AND ORIENTED X3, FORGETUL WITH MEMORY RECALL. PT HAS SL RT HAND. OLD DRESSING TOOK OFF RUE FROM PREVIOUS PICC LINE. PT DENIES ANY PAIN AT THIS TIME. BOWEL SOUNDS PRESENT, ABD IS ROUND AND SOFT. PT FROM HOME ORIGIONALY BY HER SELF. PT WAS NOT TAKING HER MEDICATION FOR 10 MONTHS DUE TO COVID 19 SCARE AND WHEN SHE CALLED PHARMACY THERE WAS NO ANSWER. HER SON IS INVOLVED IN HER MEDICAL DECISIONS AND WOULD LIKE HER TO GO TO SNF AFTER THIS STAY.
[2021-03-24 19:02] VITALS: BP 134/81
--- NOTE | 2021-03-24 23:23 | NUR ---
PT ASSESSMENT COMPLETED AND VSS. MEDS GIVEN ORDERED AND WELL TOLERATED. FALL PRECAUTIONS IN PLACE. ASST WITH REPOSITION FOR COMFORT. OZZIE CARE PROVIDED AND FUNGAL CREAM APPLIED. CONSENTS SIGNED. SLEEPING WELL. WILL CONTINUE TO MONITOR FREQUENTLY.
[2021-03-25 03:59] LABS: HEMOGLOBIN 13.4 gm/dL (12.0-15.0); MCHC 32.6 g/dL (28.0-37.0); MCV 95.2 fL (80.0-100.0); RBC 4.31 mil/uL (4.20-5.00); RDW 14.9 % (10.5-14.5); WBC 11.9 thou/uL (4.0-11.0)
[2021-03-25 04:24] LABS: ALBUMIN 2.1 g/dL (3.4-5.0); CALCIUM 8.3 mg/dL (8.5-10.1); CREATININE 0.9 mg/dL (0.6-1.0); POTASSIUM 4.9 mmol/L (3.5-5.1); TOTAL PROTEIN 5.8 g/dL (6.4-8.2)
[2021-03-25 07:14] VITALS: BP 114/59
--- NOTE | 2021-03-25 08:44 | NUR ---
PT LYING IN BED WORKING WITH ST. PT TOOK MEDS WHOLE WITH WATER. PT WASN'T VERY HAPPY ABOUT TAKING MEDICATION. PT STATED SHE JUST STOPPED TAKIN HER MEDS DUE TO THE COST. PT STATED SHE IS ABLE TO TAKE CARE OF HER MEDS WITHOUT ASSISTANCE AT HOME, SHE SAID SHE HAS A BRAIN AND CAN USE IT AND DOESN'T ASK HER FAMILY FOR HELP. PT HAS FUNGAL TYPE RASH TO BUTTOCKS AND GROIN, CREAM APPLIEDS. PT INCON. AND DOES NOT CALL FOR ASSISTANCE TO BATHROOM. OXYGEN ON 3L NC. LUNGS CLEAR.
--- NOTE | 2021-03-25 09:29 | NUR ---
WOUND CONSULT; THE RIGHT BUTTOCKS REGION HAS S/S OF FUNGAL VS PRESSURE. THE AREA HAS DISCOLORATION/STAINING THAT MAKES IT DIFFICULT TO DETERMINE ETIOLGY. FOR NOW I WILL CALL IT BOTH. NO DRAINAGE AND NONE BLANCHABLE. THE SKIN IS INTACT. RECOMMENDATIONS -ANTIFUNGAL BARRIER CREAM -Q2H TURNING -LOW AIRLOSS BED PUMP. DISCUSSED WITH BRITANY.
[2021-03-25 19:25] VITALS: BP 116/64
--- NOTE | 2021-03-25 23:10 | NUR ---
PT ASSESSMENT COMPLETED AND VSS. MEDS GIVEN ORDERED AND WELL TOLERATED. FALL PRECAUTIONS IN PLACE. DAUGHTER KD IN TO SEE PT THIS EVENING. ASKED PT IF SHE WANTED TO VISIT WITH HER DAUGHTER AND SHE SAID YES. ASST WITH REPOSITION FOR COMFORT. INC OF LARGE AMOUNTS OF URINE. FUNGAL CREAM AND Z GUARD APPLIED TO FUNGAL OZZIE AREA. SLEEPING WELL. WILL CONTINUE TO MONITOR FREQUENTLY.
[2021-03-26 07:18] VITALS: BP 121/73
--- NOTE | 2021-03-26 08:17 | NUR ---
PT WORKING WITH THERAPY THIS AM. PT SLOW TO GETTING UP TO CHAIR. PT WAS INCON OF URINE IN BED AND THE COLOR ON THE PAD WAS ORANGE. PT LUNGS CLEAR, OXYGEN ON 3L NC. PT DENIES ANY PAIN. PT HAS RASH TO GROIN AREA AND BUTTOCKS. PT TOOK MEDS WHOLE WITH WATER. PT UP WITH ASSIST, PT ABLE TO TRANSFER WITH ASSIST TO W/C. PT SEEMS TO HAVE A APPETITE AND EATING BREAKFAST.
--- NOTE | 2021-03-26 08:24 | EKG ---
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 : 1940 Requested By: Jayda Baer Order Number: [id number] MD: Raffi Strong Measurements Intervals [place] Rate: 93 P: MI: QRS: -11 QRSD: 132 T: 3 QT: 382 QTc: 476 Interpretive Statements Atrial fibrillation Right bundle branch block Compared to ECG 03/21/2021 07:17:45 Ventricular premature complex(es) no longer present Electronically Signed On 03-26-2021 8:24:35 DIRECTOR DERMATOLOGY by Raffi Strong [email or web address] <ELECTRONICALLY SIGNED> By: Raffi Strong MD, [facility] 03/26/2124 0 0 Raffi Strong MD, [facility] /EPI
--- NOTE | 2021-03-26 13:08 | NUR ---
Team meeting, recommendation her son works evening shift 3-10pm. Son lives with her but works evening shift. She is BPIC. Needs assist with medication and finances. o2 2L/nc, will need to see if carina off oxygen can. Mod to severe cognitive and memory. Diet [facility] soft with ground meats and thin liquids. Needs frequent checks at home. Dc 04/04 home with hh ( pt, ot, st, nursing, sw). will need fww.
--- NOTE | 2021-03-26 14:44 | NUR ---
Chart review. 80-year-old female who was readmitted to [facility] 03/15 with A. fib with RVR, sepsis, renal failure. A. fib with RVR, Cardizem drip was initiated, cardiology was consulted. transferred to our acute inpatient rehabilitation unit. We were consulted for medical management. A & O to self with confusion and forgetfulness. continues to require oxygen. Prior to hospital she lives at home with she son Serge who works in the evening, and she is home alone at the time. Has a cane. Unknown if she had hh or any rehab in the past. Will cont. following as needed for dc needs.
--- NOTE | 2021-03-26 16:16 | H ---
[facility] [place] [address] HISTORY AND PHYSICAL Name: TONG TOTH Room #: 505-P ADM IN M.R.#: [id number] Admission: 03/24/21 Attend Phys: Leroy Garcia MD Discharge: Date of : 38 Report #: [id number] THIS REPORT FOR: cc: [facility] - Clinic physician unknown [facility] - Clinic physician unknown Leroy Garcia MD ~ DATE OF SERVICE: 03/25/2021 HISTORY OF PRESENT ILLNESS: The patient is an 80-year-old white female who was previously seen by me in consultation. She was admitted originally to [facility] on 03/15/2021 with weakness and mental status changes. She was noted to have atrial fibrillation with rapid ventricular response, sepsis secondary to community-acquired pneumonia, elevated BNP, respiratory failure secondary to pneumonia versus congestive heart failure along with bilateral pleural effusions. She was noted to have acute renal insufficiency superimposed on chronic kidney disease. She was noted to have a toxic metabolic encephalopathy. She was followed by multiple consultants. She was noted to have pancreatic cystic lesions with elevated liver function tests. She was felt to be medically stable for acute in-hospital inpatient rehabilitation and has the significant functional decrease from her premorbid level. It was felt that she had the tolerance for an acute inpatient rehabilitation stay as well as the motivation. She has now been admitted for acute inpatient rehabilitation. PAST MEDICAL HISTORY: Includes atrial fibrillation, on Coumadin, although she had not been on any of her past medications for the past 10 months as there was noted to be a fear of going outside secondary to COVID. She has a history of hypertension, acute renal insufficiency superimposed on chronic kidney disease, coronary artery disease with prior coronary artery bypass grafting and mitral valve replacement. HABITS: No history of tobacco or alcohol abuse. MEDICATIONS: Please see the full medication listing. ALLERGIES: HEPARIN. Noted to have HIT on 03/04/2013. SOCIAL HISTORY: Lives in a single story house with her son, 2 steps to enter with bilateral handrails. Son works nights and lives with her during the day. She premorbidly utilized the cane. He had noted gradual decline in her mentation and that she has been sleeping a lot, especially the month prior to admission. REVIEW OF SYSTEMS: No current complaints today when asked. She did not complain of any chest pain, shortness of breath. No specific focal musculoskeletal complaints. [facility] [address] [place] [address] HISTORY AND PHYSICAL Name: TONG TOTH Room #: 505-P [facility] IN [facility].#: [id number] Admission: 03/24/21 Attend Phys: Leroy Garcia MD Discharge: Date of : 38 Report #: [id number] PHYSICAL EXAMINATION: GENERAL: The patient was seen virtually. An 80-year-old white female. She was in no distress. She was alert, pleasant, follows basic 1-step commands. There is a definite latency to her responses. VITAL SIGNS: Her temperature is 97.6, pulse 79, respirations 18, blood pressure 114/59. NEUROLOGIC: Significant cardiopulmonary or abdominal abnormalities were noted with nursing involved. She was able to move her extremities for me, has decreased end range. Decreased generalized strength. She appeared pleasant and cooperative. Prior to coming to rehabilitation, she had been able to get up some and work on some bed mobility with attempts of sit to stand. ASSESSMENT: An 80-year-old white female with the following problem list: 1. Toxic metabolic encephalopathy. 2. Medical complexity with generalized debilitation. 3. Sepsis secondary to community-acquired pneumonia. 4. Respiratory failure secondary to pneumonia and congestive heart failure with bilateral pleural effusions. 5. Acute renal insufficiency superimposed on chronic kidney disease. 6. Pancreatic cystic lesions with elevated liver function tests. 7. Cardiomyopathy. PLAN: The patient has been admitted for acute in-hospital inpatient rehabilitation. Please see her previous and current functional status. She had previously been able to utilize a cane, although she is significantly weaker at this point. She had been doing some very short ambulation with a walker prior to coming up to rehabilitation. As far as risk of complication, she does have multiple medical comorbidities. Initial plan of care involves the interdisciplinary acute inpatient rehabilitation program. Measurable functional goals would be for her to become modified independent with transfers, mobility, ADLs and improvement in cognition, so she can return back to the home setting. Prognosis is reasonably good with estimated length of stay probably around 10-14 days pending progress. Potential barriers would include her multiple medical comorbidities and decreased functional status. She meets diagnostic criteria for an acute in-hospital inpatient rehabilitation stay. She meets the medical necessity criteria and we will have the multiple baby registry sales consultant physicians continue to follow with her while she is on the rehabilitation [facility]. She does have the tolerance for therapies and has appropriate discharge goals back to the home setting. <ELECTRONICALLY SIGNED> By: Leroy Garcia MD 03/26/21 1616 0748 [id number] Leroy Garcia MD /nt
[2021-03-26 19:19] VITALS: BP 112/73
--- NOTE | 2021-03-27 03:22 | NUR ---
ASSUMED CARE AT 1900 OF 03/26. PATIENT IS A&OX3, FORGETFUL AND CONFUSED AT TIMES. CONTINUES ON 2L OF VIA SD. TOLERATED ORAL MEDS WHOLE ONE AT A TIME WITH THIN LIQUIDS. INCONTINENT OF BLADDER DURING SHIFT, ANTIFUNGAL CREAM APPLIED TO PERIAREA. ASSISTED WITH REPOSITIONING. FALL PRECAUTIONS IN PLACE, CALL LIGHT WITHIN REACH. WILL CONTINUE TO MONITOR.
[2021-03-27 07:15] VITALS: BP 131/77
[2021-03-27 07:30] VITALS: BP 131/77
[2021-03-27 09:20] LABS: URINE BILIRUBIN NEGATIVE (Negative); URINE BLOOD 3+ (Negative); URINE CLARITY CLOUDY; URINE COLOR RED; URINE GLUCOSE-RANDOM* NEGATIVE (Negative); URINE KETONES NEGATIVE (Negative); URINE LEUKOCYTES-REFLEX 1+ (Negative); URINE NITRITE-REFLEX NEGATIVE (Negative); URINE PROTEIN (DIPSTICK) 1+ (Negative); URINE SPECIFIC GRAVITY 1.015 (1.005-1.035)
--- NOTE | 2021-03-27 10:22 | NUR ---
PPS CLARIFICATION BLADDER AND BOWEL CONTINENCE REPORT: PER NURSING REPORT ON THE FIRST 3 DAYS OF ADMISSION ASSESSMENT, PT HAS BEEN TOTALLY INCONTINENT OF BOTH BOWEL AND BLADDER. TIMED VOIDING HAS STARTED, AND SHE WAS ABLE TO VOID ONCE CONTINENTLY TODAY WITH Q 2 H BLADDER TRAINING THAT WAS ORIGINALLY INITIATED YESTERDAY AFTER TEAM CONFERENCE. CONTINUING WITH SCHEDULED VOIDING TODAY.
--- NOTE | 2021-03-27 13:11 | NUR ---
ASSUMED CARE OF PTAT 0700. PT A&OX3. PT WILINGLY WORKS WITH THERAPY. TOLERATING MECHANICAL SOFT DIET. GAIT STEADY WITH WALKER AND SBA. PT REMAINS ON 2L NC. ANTIFUNGAL CREAM APPLIED TO GROIN AND OZZIE AREA. VS CHARTED. WILL CONTINUE TO MONITOR.
[2021-03-27 13:15] LABS: SQUAMOUS None Seen /LPF (0-3)
[2021-03-27 13:18] LABS: BACTERIA-REFLEX 1-9 Few /HPF (None Seen); CASTS None Seen /LPF (None Seen); CRYSTALS None Seen /LPF (None Seen); URINE RBC >20 Many /HPF (NONE SEEN); URINE WBC-REFLEX 6-15 Few /HPF (0-5)
--- NOTE | 2021-03-27 15:23 | PLAN ---
[facility] [place] [address] REHAB UNIT PLAN OF CARE Name: TONG TOTH Room #: 505-P ADM IN M.R.#: [id number] Admission: 03/24/21 Attend Phys: Leroy Garcia MD Discharge: Date of : 38 Report #: [id number] THIS REPORT FOR: cc: [facility] - Clinic physician unknown [facility] - Clinic physician unknown Leroy Garcia MD ~ DATE OF SERVICE: 03/26/2021 PROGRESS NOTE/OVERALL PLAN OF CARE The patient was seen virtually today. She was pleasant, in no distress. Upon discussion with her she notes she had never been utilizing oxygen before, but is currently on 2 liters. I discussed with her that we are trying to taper her oxygen. Nursing notes, some discoloration of her urine and an order has been given to send the UA, C and S. The hospitalist service is involved regarding her medical management as well as Cardiology. Functionally, she is progressing with gait 70 feet front-wheeled walker, contact guard. Transfers are contact guard. In occupational therapy, she is supervision for upper body dressing and min assist for lower body dressing. Speech therapy is on a mechanical soft, solid, thin liquid diet. She does have moderate to severe cognitive and memory deficits and will need help managing meds and finances. ASSESSMENT: 1. Toxic metabolic encephalopathy. 2. Medical complexity with generalized debilitation. 3. Sepsis secondary to community-acquired pneumonia. 4. Respiratory failure secondary to pneumonia and congestive heart failure with bilateral pleural effusions. 5. Acute renal insufficiency superimposed on chronic kidney disease. 6. Pancreatic cystic lesions with elevated liver function tests. 7. Cardiomyopathy. PLAN: The overall plan of care is based on the pre-admit screening information garnered from therapy assessments. 1. Estimated length of stay is probably 10-14 days. 2. Medical prognosis is reasonably good. 3. Anticipated interventions includes the interdisciplinary acute inpatient rehabilitation program. 4. Anticipated functional outcomes would be for the patient to become modified independent at least at the walker level and hopefully to wean her off of O2. She was utilizing a cane premorbidly. 5. Discharge destination would be back home with her son. She does work evenings. 6. Expected therapy by discipline includes PT, OT and speech 1 hour per day each 5 days a week throughout the duration of the acute inpatient rehabilitation stay. [address] [address] REHAB UNIT PLAN OF CARE Name: TONG TOTH Room #: 505-P [facility] IN [facility].#: [id number] Admission: 03/24/21 Attend Phys: Leroy Garcia MD Discharge: Date of : 38 Report #: [id number] The patient's prognosis for significant practical improvement within a reasonable period of time appears good. Given the patient's complex medical condition and risk of further medical complication, rehabilitation services could not be safely provided at a lower level of care such as a longterm facility. ADDENDUM: Please seen the nurse practitioner's progress note from today. Agree with the documentation as noted. <ELECTRONICALLY SIGNED> By: Leroy Garcia MD 03/27/21 1523 1442 0058 eLroy Garcia MD /nt
--- NOTE | 2021-03-27 15:23 | PLAN ---
[facility] [address] [place] [address] REHAB UNIT PLAN OF CARE Name: NAVNEETTONG H Room #: 505-P ADM IN M.R.#: [id number] Admission: 03/24/21 Attend Phys: Leroy Garcia MD Discharge: Date of : 38 Report #: [id number] THIS REPORT FOR: cc: [facility] - Clinic physician unknown [facility] - Clinic physician unknown Leroy Garcia MD ~ DATE OF SERVICE: 03/26/2021 ADDENDUM: Dr. Interiano will be assuming care on 03/28/2021. <ELECTRONICALLY SIGNED> By: Leroy Garcia MD 03/27/21 1523 1515 0104 Leroy Garcia MD /nt
--- NOTE | 2021-03-27 17:01 | NUR ---
I have reviewed the documentation by SEAN ÁLVAREZ from 03/25/21 to 03/27/21 and I concur with it. DEBO SLAUGHTER
[2021-03-27 19:30] VITALS: BP 131/76
--- NOTE | 2021-03-28 02:29 | NUR ---
assumed care approx 0 evening 03/27. pt lying in bed with head of bed elevated at change of shift. pt on O2 1L per n/c. pt incontinent of bm at change of shift and complete bed change. pt took hs meds with water tolerating well. pt appears to be sleeping soundly. bed alarm on and call light in reach. will continue to monitor.
[2021-03-28 08:00] VITALS: BP 120/85
--- NOTE | 2021-03-28 12:53 | NUR ---
Team meeting, recommendation: low air mattress, q 2 turns. Incontinent urine. bladder scan. Incontinent and continent of bowels. No dme needs. needs 24/7 supervision with son is not able to be home. Cont. assist with medications and finances. HH (pt, ot, st, nurse and sw). BPCI
[2021-03-28 19:48] VITALS: BP 122/78
--- NOTE | 2021-03-28 23:58 | NUR ---
ASSUMED CARE OF PT AT 1915 ON 03/28/21. PT IS A&OX4, BUT FORGETFUL. IS ON ROOM AIR. IS STABLE. REPORTED PAIN IN RIGHT KNEE POST FALL THAT IS BEING MANAGED WITH TYLENOL. PT STATED, "I HAVE ALWAYS HAD PAIN IN THIS KNEE". X-RAY COMPLETED. PLEASE SEE REPORT FOR DETAILS & POST FALL NOTE. IS CURRENTLY SLEEPING. CALL LIGHT WITHIN REACH. LABS & VITALS REVIEWED. 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 WILL CONTINUE TO MONITOR.
--- NOTE | 2021-03-29 05:07 | NUR ---
ASSUMED CARE OF PT AT 1915 ON 03/28/21. PT IS A&OX4. IS ON ROOM AIR. DENIES PAIN. IS UP WITH 1 ASSIST, GB, WALKER TO BSC. IS STABLE. FALL PRECAUTIONS & HOURLY ROUNDING CONTINUED THIS SHIFT. LABS & VITALS REVIEWED. CONTINUES TO HAVE GROSS HEMATURIA. IS INCONTINENT AT TIMES. ANTIFUNGAL CONTINUED TO APPLIED TO GROIN AREA. PT IS CURRENTLY ASLEEP. CALL LIGHT WITHIN REACH. WILL CONTINUE TO MONITOR.
[2021-03-29 06:11] LABS: ABSOLUTE NEUTROPHILS 9.8 thou/uL (1.4-8.2); BASOPHILS 0.3 % (0.0-2.0); EOSINOPHILS 0.6 % (0.0-3.0); HEMATOCRIT 40.1 % (37.0-47.0); HEMOGLOBIN 13.2 gm/dL (12.0-15.0); LYMPHOCYTES 4.6 % (24.0-44.0); MCH 31.1 pg (26.0-34.0); MCHC 32.8 g/dL (28.0-37.0); MCV 94.7 fL (80.0-100.0); MONOCYTES 6.9 % (1.0-8.0); PLATELET COUNT 234 thou/uL (150-400); POLYS 87.6 % (36.0-66.0); RBC 4.23 mil/uL (4.20-5.00); RDW 15.3 % (10.5-14.5); WBC 11.1 thou/uL (4.0-11.0)
[2021-03-29 06:55] LABS: CALCIUM 8.7 mg/dL (8.5-10.1); CREATININE 0.9 mg/dL (0.6-1.0); MAGNESIUM 1.9 mg/dL (1.8-2.4)
[2021-03-29 07:17] LABS: POTASSIUM 5.5 mmol/L (3.5-5.1)
[2021-03-29 08:00] VITALS: BP 106/87
--- NOTE | 2021-03-29 08:57 | NUR ---
WOUND CARE F/U; NO WOUNDS. NO NEED TO FOLLOW. RECONSULT IF NEEDED.
--- NOTE | 2021-03-29 09:18 | NUR ---
PT SITTING UP IN CHAIR FOR BREAKFAST. PT LUNGS CLEAR AND ON ROOM AIR. PT STATED SHE WAS GETTING HUNGRY FOR BREAKFAST. PT HAS STARR HOSE ON BILATERALY. PT UP VIA WALKER. PT DID USE BATHROOM THIS AM TO VOID AND NOTICED BLOOD TINGED URINE IN STOOL. PT DENIES ANY PAIN AT THIS TIME. PT TOOK MEDS WHOLE WITH WATER.
--- NOTE | 2021-03-29 16:23 | NUR ---
I have reviewed the documentation by SULY ÁLVAREZ from 03/28/21 to 03/29/21 and I concur with it. ITALO MENDES
--- NOTE | 2021-03-29 17:56 | NUR ---
PT HAS HAD A GOOD DAY TODAY. PT SON VISITED, HE ALSO SAID AT HOME HER URINE WAS AN ORANGE TINGE COLOR. PT WALKED TODAY IN THE BLANCHARD AND TOLERATED WELL WITH PERIODS OF RESTING.
[2021-03-29 19:25] VITALS: BP 112/68
--- NOTE | 2021-03-30 00:07 | NUR ---
PT ALERT AND ORIENTED X 4. INCONT OF ORANGE COLORED URINE. PT TAKES MEDS WITH WATER WITHOUT DIFFICULTY. PT DENIES PAIN OR DISCOMFORT. BED ALARM ON FOR SAFETY. PT APPEARS TO BE SLEEPING ON HOURLY ROUNDS.
[2021-03-30 08:00] VITALS: BP 132/77
[2021-03-30 09:15] VITALS: BP 132/77
--- NOTE | 2021-03-30 15:12 | NUR ---
ASSUMED CARE OF T AT 0700. PT DOES NOT LIKE TO TAKE PILLS. PT DID TAKE PILLS ONE AT A TIME WITH WATER. PT UP TO TOILET WITH WALKER AND GAIT BELT. STEADY GAIT NOTED. [place]STATIN APPLIED TO OZZIE AREA AND GROIN AREAS. PT DID NOT WANT TO WORK WITH P.T. TODAY. PT WANTED TO REST IN BED. PT REFUSES Q2 TOILETING. STATES SHE WILL GO WHEN SHE FEELS LIKE SHE NEEDS TO. PT DID CALL OUT TO VOID. WILL CONTINUE TO MONITOR.
[2021-03-30 19:08] VITALS: BP 111/68
--- NOTE | 2021-03-31 01:57 | NUR ---
assumed care approx 1900 evening 03/30. pt lying in bed sleeping at change of shift. pt awoke to take hs meds tolerating well. pt quiet and denies complaints. pt appears to be sleeping soundly. bed alarm on and call light in reach. will continue to monitor.
[2021-03-31 08:00] VITALS: BP 135/75
[2021-03-31 10:00] LABS: HEMOGLOBIN 12.8 gm/dL (12.0-15.0); MCH 31.1 pg (26.0-34.0); MCHC 32.8 g/dL (28.0-37.0); MCV 95.1 fL (80.0-100.0); RBC 4.1 mil/uL (4.20-5.00); RDW 15.4 % (10.5-14.5); WBC 8.6 thou/uL (4.0-11.0)
--- NOTE | 2021-03-31 10:00 | NUR ---
PT SITTING UP IN CHAIR FOR BREAKFAST. PT WANTED TO GO BACK TO BED AFTER EATING. PT STATED SHE WANTS TO REST ITS THURSDAY. PT HAS FAINT CRACKLES TO LLL. PT ON ROOM AIR. PT DENIES ANY PAIN. PT TOOK MEDS WITH THIN WATER. PT DIDN'T LIKE HOW MANY PILLS SHE IS TAKING IN THE AM. REASURRED PT THAT SHE PROB WILL BE FINISHED WITH A COUPLE OF MEDS BEFORE DISCHARGED. PT SEEMS NOT TO CARE ABOUT THE MEDICATION, PT KNOWS THEY ARE TO HELP HER GET BETTER. PT UP WITH WALKER X1 ASSIST.
[2021-03-31 10:10] LABS: CALCIUM 8.6 mg/dL (8.5-10.1); POTASSIUM 4.3 mmol/L (3.5-5.1)
[2021-03-31 19:56] VITALS: BP 131/74
--- NOTE | 2021-04-01 04:16 | NUR ---
ASSUMED CARE AT 1915 OF 03/31. PATIENT IS A&OX4, BUT FORGETFUL AT ITMES. STAND BY ASSIST WITH TRANSFERS AN AMBULATION USING GB AND WALKER. DENIES PAIN OR SHORTNESS OF BREATH, CAN BE INTCONTINENT OF BLADDER. ANTIFUNGAL CREAM APPLIED TO PERIAREA. FALL PRECAUTIONS IN PLACE CALL LIGHT WITHIN REACH. WILL CONTINUE TO MONITOR.
[2021-04-01 07:15] VITALS: BP 129/81
[2021-04-01 13:35] VITALS: BP 129/81
--- NOTE | 2021-04-01 15:43 | NUR ---
Client presented pleasant and oriented x this morning. Client was admitted to unit due to UTI w/encephal and comes from home where she lives with her son. Client did not voice any concerns during this shift, and took all medications whole with water. Barrier cream and nystatin applied to client's chris area to help with redness, but otherwise client skin intact and dry. Client is currently on voiding schedule every two hours, and has been toileted several times during this shift. No pain noted upon assessment. No further concerns at this time.
[2021-04-01 19:31] VITALS: BP 102/66
--- NOTE | 2021-04-02 04:50 | NUR ---
ASSUMED CARE AT 1930 OF 04/01. PATIENT IS A&OX4, BUT FORGETFUL AT TIMES. ABLE TO MAKE NEEDS KNOWN. STAND BY ASSIST WITH TRANSFERS AND AMBULATION, USING GB AND WALKER. SCHEDULED BOWEL MEDICATION HELD AT HS, BECAUSE PATIENT HAD A LARGE LOOSE BM RECENTLY. CAN BE INCONTINENT OF BLADDER, WILL CONTINUE TO MONITOR FOR EPISODES OF BLADDR INCONTINENCE. SLEEPING ON HOURLY ROUNDS. FALL PRECAUTIONS IN PLACE. CALL LIGHT WITHIN REACH. WILL CONTINUE TO MONITOR.
[2021-04-02 07:37] VITALS: BP 134/84
--- NOTE | 2021-04-02 15:49 | NUR ---
Patient care resummed; patient located in her bed in a semi:fowlers position. A&O*3, confused at times throughout the day, ambulates with a walker and gaitbelt: *Standby assist. Lung sounds are clear, although diminished in bases; abdomen soft, nondistended with bowel sounds present*4. VSS, although a little tacycardiac this morning at 101bmp. Patient denies having any pain at this time; Patient's chris-area is increasingly red, area was cleaned with nystain/fungal cream was applied. Patient has had on tedhose when up from bed and SCD's on while in bed. Fall precautions are in place, call light within reach, will continue to monitior patient.
--- NOTE | 2021-04-02 17:06 | NUR ---
I have reviewed the documentation by SEAN ÁLVAREZ from 04/02/21 to 04/02/21 and I concur with it. DEBO SLAUGHTRE
[2021-04-02 19:43] VITALS: BP 118/65
--- NOTE | 2021-04-03 00:19 | NUR ---
PT ALERT AND ORIENTED X 4, CONFUSED AT TIMES. INCONT OF URINE. NYSTATIN CREAM APPLIED TO OZZIE-AREA AT HS. PT TOOK HS MEDS IN PUDDING WITHOUT DIFFICULTY. PT DENIES PAIN OR DISCOMFORT. BED ALARM ON FOR SAFETY. PT APPEARS TO BE SLEEPING ON HOURLY ROUNDS.
[2021-04-03 10:28] VITALS: BP 115/76
--- NOTE | 2021-04-03 13:30 | NUR ---
AGREE WITH ASSESSMENT.
[2021-04-03 20:00] VITALS: BP 129/74
[2021-04-04] MEDS ORDERED: COLACE100 MG PO (08:45)
[2021-04-04] MEDS ORDERED: ASA81BEC PO (08:45)
[2021-04-04] MEDS ORDERED: PACERONE 200 M200 M1 PO (08:45)
[2021-04-04] MEDS ORDERED: MEGESTROL400 MG/11 PO (08:45)
[2021-04-04 10:35] VITALS: BP 125/75
[2021-04-04] MEDS ORDERED: METOPROLOL SUCC50 MG PO (11:24)
== END 2021-04-04 11:45 | disposition home health service (06) | DRG 947 ==
PROVIDERS: Nurse Practitioner; Nurse Practitioner Family; ADMIT Physical Medicine & Rehabilitation; ATTEND Physical Medicine & Rehabilitation
DX: R53.81 Other malaise (principal); G92.8 Other toxic encephalopathy; A41.9 Sepsis, unspecified organism; J18.9 Pneumonia, unspecified organism; J96.01 Acute respiratory failure with hypoxia; E43 Unspecified severe protein-calorie malnutrition; N17.9 Acute kidney failure, unspecified; D68.9 Coagulation defect, unspecified; I48.21 Permanent atrial fibrillation; E87.1 Hypo-osmolality and hyponatremia; K86.2 Cyst of pancreas; I13.0 Hypertensive heart and chronic kidney disease with heart failure and stage 1 through stage 4 chronic kidney disease, or unspecified chronic kidney disease; I42.9 Cardiomyopathy, unspecified; I25.10 Atherosclerotic heart disease of native coronary artery without angina pectoris; N18.9 Chronic kidney disease, unspecified; I25.5 Ischemic cardiomyopathy; I50.9 Heart failure, unspecified; K80.20 Calculus of gallbladder without cholecystitis without obstruction; R74.01 Elevation of levels of liver transaminase levels; I05.9 Rheumatic mitral valve disease, unspecified; K59.00 Constipation, unspecified; E87.5 Hyperkalemia; Z88.8 Allergy status to other drugs, medicaments and biological substances; Z95.1 Presence of aortocoronary bypass graft; Z68.22 Body mass index [BMI] 22.0-22.9, adult; Z91.19 Patient's noncompliance with other medical treatment and regimen
CPT/HCPCS: 10112

== ENCOUNTER 2021-04-28 00:25 | Inpatient (IN) | payer OTHER ==
[~2021-04-28] VITALS: Ht 157.5 cm; Wt 55.5 kg
--- NOTE | ~2021-04-28 | EMS ---
[address] [address] EMS Patient Care Report Name: TONG TOTH Room #: 355-P ADM IN M.R.#: [id number] Admission: 04/28/21 Attend Phys: Mckenzie Flynn MD Discharge: Date of : 38 Report #: [id number] THIS REPORT FOR: //name// Report Transmitted: 05/01/2021 09:45 EMS Care Summary [place], [place]/[facility] Incident [id number] @ 04/27/2021 23:46 Incident Location [address] [place] [address] Patient TONG TOTH Female, 80 Years 1940 Patient Address [address] [place] [address] Patient History Congestive Heart Failure (CHF),Hypertension (HTN),Cardiac Condition - Other,Atrial Fibrillation, Patient Allergies No known allergies, Patient Medications Warfarin, Pravastatin, Lisinopril, Carvedilol, Diltiazem, Digoxin, Chief Complaint AMS Disposition Transported No Lights/Mobile Dispatch Reason Sick Person Transported To [facility] Narrative ARRIVED TO FIND PT SLOUCHED IN A CHAIR. FAMILY ON SCENE REPORTS THAT PT IS NOT ACTING LIKE HERSELF, HAS EDEMA RETURNING TO HER LOWER EXTREMITIES. REPORTS THAT PT HAS SEEN 1 MONTH AGO FOR NEW ONSET HEART FAILURE. [place] [address] EMS Patient Care Report Name: TONG TOTH Room #: 355-P [facility] IN .R.#: [id number] Admission: 04/28/21 Attend Phys: Mckenzie Flynn MD Discharge: Date of : 38 Report #: [id number] OBTAINED. PT CARRIED TO COT, SECURED WITH STRAPS X2, LOADED WITHOUT INCIDENT. ENROUTE, PT CONDITION UNCHANGED. ARRIVED. PT TAKEN INSIDE ON COT TO ER 1. PT MOVED TO BED RAILS RAISED X2. REPORT GIVEN TO NURSE, PT CARE TRANSFERRED. Initial Vitals @00:05P: 115,SpO2: 96,WA Suspected: false @00:20P: 99,R: 16,BP: 146/63,Pain: 0/10,GCS: 14,CO: 0,SpO2: 94,Revised Trauma: 12, @00:02P: 116,R: 16,BP: 114/73,Pain: 0/10,GCS: 14,CO: 1,SpO2: 95,Revised Trauma: 12, Assessments @23:52MENTAL:Place Oriented,Confused,Person Oriented,SKIN:Pale,HEENT:Head/Face: No Abnormalities,Eyes: No Abnormalities,Neck/Airway: No Abnormalities,LUNG SOUNDS:General: No Abnormalities,Left Upper: No Abnormalities,Right Upper: No Abnormalities,Left Lower: No Abnormalities,Right Lower: No Abnormalities,ABDOMEN:General: No Abnormalities,Left Upper: No Abnormalities,Right Upper: No Abnormalities,Left Lower: No Abnormalities,Right Lower: No Abnormalities,PELVIS//GI:No Abnormalities,EXTREMITIES:Right Leg: Edema,Left Leg: Edema,Left Arm: No Abnormalities,Right Arm: No Abnormalities,PULSE:Radial: 2+ Normal,NEURO:No Abnormalities, Impression Congestive heart failure (CHF) Procedures @00:05 12-Lead ECG @23:52 ALS Assessment Response: UnchangedSucceeded @00:10 IV Therapy - Saline Lock 10cc (20 ga) Site: Antecubital-Left Response: UnchangedSucceeded Timeline 23:44,Call Received 23:44,Dispatch Notified 23:46,Dispatched 23:47,En Route 23:51,On Scene 23:52,At Patient 23:52,ALS Assessment,Response: UnchangedSucceeded, 00:02,BP: 114/73 M,PULSE: 116,RR: 16 R,SPO2: 95 Ox,ETCO2: ,BG: ,PAIN: 0,GCS: 14, 00:05,12-Lead ECG, [address] [address] EMS Patient Care Report Name: TONG TOTH Room #: 355-P ADM IN [facility]#: [id number] Admission: 04/28/21 Attend Phys: Mckenzie Flynn MD Discharge: Date of : 38 Report #: [id number] 00:05,BP: / M,PULSE: 115,RR: R,SPO2: 96 Ox,ETCO2: ,BG: ,PAIN: ,GCS: , 00:09,Depart Scene 00:10,IV Therapy - Saline Lock 10cc 20 ga Site: Antecubital-Left,Response: UnchangedSucceeded, 00:20,BP: 146/63 M,PULSE: 99,RR: 16 R,SPO2: 94 Ox,ETCO2: ,BG: ,PAIN: 0,GCS: 14, 00:22,At Destination 00:35,Call Closed Disclaimer v1.1 Copyright 2021 [employer] This EMS Care Summary contains data elements from the applicable legal record (which may be displayed differently). It is designed to provide pertinent information for the following purposes: continuity of care, clinical quality, and state data reporting. The complete legal record is available to ED staff and administrators of the receiving hospital in [employer] Patient Tracker. All data is provided "as is."
[~2021-04-28 00:25] MED LIST changes: +ASA81BEC PO; +CEFDINIR300 MG PO; +COLACE100 MG PO; +MEGESTROL400 MG/11 PO; +METOPROLOL SUCC50 MG PO; +PACERONE 200 M200 M1 PO
[2021-04-28 00:28] VITALS: BP 117/87
[2021-04-28 00:52] LABS: ICTOTEST (BILI CONFIRMATORY) Positive (Negative); URINE BILIRUBIN 1+ (Negative); URINE BLOOD 3+ (Negative); URINE CLARITY SL CLOUDY; URINE COLOR YELLOW; URINE GLUCOSE-RANDOM* NEGATIVE (Negative); URINE KETONES TRACE (Negative); URINE LEUKOCYTES-REFLEX 1+ (Negative); URINE NITRITE-REFLEX NEGATIVE (Negative); URINE PROTEIN (DIPSTICK) 1+ (Negative); URINE SPECIFIC GRAVITY >= 1.030 (1.005-1.035)
[2021-04-28 01:06] LABS: HYALINE CASTS 0-3 Few /LPF (None Seen); MUCUS 0-3 Light strn/LPF (None Seen); SQUAMOUS 0-3 Few /LPF (0-3)
[2021-04-28 01:07] LABS: CRYSTALS None Seen /LPF (None Seen); URINE RBC 3-10 Few /HPF (NONE SEEN); URINE WBC-REFLEX 6-15 Few /HPF (0-5)
[2021-04-28 04:14] LABS: ABSOLUTE NEUTROPHILS 13.5 thou/uL (1.4-8.2); BASOPHILS 0.2 % (0.0-2.0); HEMATOCRIT 43.4 % (37.0-47.0); HEMOGLOBIN 14.3 gm/dL (12.0-15.0); LYMPHOCYTES 3.3 % (24.0-44.0); MCH 31.4 pg (26.0-34.0); MCV 95.2 fL (80.0-100.0); MONOCYTES 4.8 % (1.0-8.0); PLATELET COUNT 144 thou/uL (150-400); POLYS 91.7 % (36.0-66.0); RBC 4.56 mil/uL (4.20-5.00); RDW 18.6 % (10.5-14.5); WBC 14.7 thou/uL (4.0-11.0)
[2021-04-28 04:21] LABS: CALCIUM 8.6 mg/dL (8.5-10.1); CREATININE 1.2 mg/dL (0.6-1.0); POTASSIUM 4.7 mmol/L (3.5-5.1)
[2021-04-28 04:30] LABS: INR 1.2
[2021-04-28 04:31] LABS: ALBUMIN 2.6 g/dL (3.4-5.0); TOTAL BILIRUBIN 1.5 mg/dL (0.2-1.0); TOTAL PROTEIN 6.6 g/dL (6.4-8.2)
[2021-04-28 09:34] VITALS: BP 107/67
[2021-04-29 01:03] LABS: ABSOLUTE NEUTROPHILS 14.3 thou/uL (1.4-8.2); BASOPHILS 0.2 % (0.0-2.0); HEMOGLOBIN 12.7 gm/dL (12.0-15.0); LYMPHOCYTES 1.6 % (24.0-44.0); MCH 30.9 pg (26.0-34.0); MCHC 31.8 g/dL (28.0-37.0); MCV 97.3 fL (80.0-100.0); MONOCYTES 3.4 % (1.0-8.0); PLATELET COUNT 139 thou/uL (150-400); POLYS 94.8 % (36.0-66.0); RBC 4.11 mil/uL (4.20-5.00); RDW 19.6 % (10.5-14.5)
[2021-04-29 01:14] LABS: INR 1.1; PROTIME 11.8 Seconds (9.3-11.4)
[2021-04-29 04:07] LABS: ALBUMIN 2.2 g/dL (3.4-5.0); CALCIUM 8.2 mg/dL (8.5-10.1); CREATININE 1.2 mg/dL (0.6-1.0); PHOSPHORUS 2.9 mg/dL (2.5-4.9); POTASSIUM 4.3 mmol/L (3.5-5.1); TOTAL BILIRUBIN 1.1 mg/dL (0.2-1.0)
--- NOTE | 2021-04-29 07:38 | EKG ---
[address] [address] ELECTROCARDIOGRAM REPORT Name: RANDALL TOTHHLHONG Taylor Room #: 170-11 ADM IN M.R.#: [id number] Admission: 04/28/21 Attend Phys: Seth Tubbs MD Discharge: Date of : 38 Report #: [id number] [facility] ED Test Date: 2021-04-28 Test Time: 00:54:43 Pat Name: TONG TOTH Department: Room: 170 Gender: F Staffing Program Manager: kerri : 1940 Requested By: Rome Ackerman Order Number: [id number] MD: Felipe Pepper Measurements Intervals [place] Rate: 110 P: ID: QRS: -24 QRSD: 128 T: -40 QT: 410 QTc: 555 Interpretive Statements Atrial fibrillation Right bundle branch block Compared to ECG 03/26/2021 08:11:54 No significant changes Electronically Signed On 04-29-2021 7:38:31 AUTOMOTIVE TITLE CLERK by Felipe Pepper [email or web address] <ELECTRONICALLY SIGNED> By: Felipe Pepper MD, [facility] 04/29/21 0738 0054 005 Felipe Pepper MD, FACC /EPI
[2021-04-29 13:14] VITALS: BP 123/79
--- NOTE | 2021-04-29 17:25 | NUR ---
vascular access consult for central line placment. Consent signed and timeout preformed prior to start with Paul GARG. 7 FR triple lumen right IJ placed without difficutly. Patient tolerated well. Flushes and draws well. Guidewire removed intact. tip confirmed with xray. positive bilateral lung slide post insertion. Okay to use central line.
[2021-04-29 20:06] VITALS: BP 122/84
[2021-04-29 23:30] VITALS: BP 121/77
--- NOTE | 2021-04-30 01:20 | NUR ---
LAB CALLED WITH CRITICAL LACTIC ACID OF 6.4. ALL APPROPRIATE PARTIES NOTIFIED.
[2021-04-30 04:08] VITALS: BP 122/96
[2021-04-30 05:57] LABS: ALBUMIN 2.6 g/dL (3.4-5.0); CALCIUM 8.7 mg/dL (8.5-10.1); CREATININE 1.2 mg/dL (0.6-1.0); DIRECT BILIRUBIN 1.2 mg/dL (<0.1-0.2); PHOSPHORUS 4.1 mg/dL (2.5-4.9); POTASSIUM 4.2 mmol/L (3.5-5.1); TOTAL BILIRUBIN 1.9 mg/dL (0.2-1.0); TOTAL PROTEIN 6.7 g/dL (6.4-8.2)
--- NOTE | 2021-04-30 08:01 | HC ---
[facility] [place] [address] CONSULTATION Name: TONG TOTH Room #: 170-23 ADM IN M.R.#: [id number] Admission: 04/28/21 Attend Phys: Mckenzie Flynn MD Discharge: Date of : 38 Report #: [id number] THIS REPORT FOR: cc: [facility] - Clinic physician unknown [facility] - Clinic physician unknown Bryan Colindres MD ~ DATE OF SERVICE: 04/29/2021 INFECTIOUS DISEASE CONSULTATION ATTENDING PHYSICIAN: Dr. Tubbs. REASON FOR EVALUATION: COVID-19 infection complicated by pneumonitis, also complicated urinary tract infection. HISTORY OF PRESENT ILLNESS: Chart reviewed. The patient examined. This 80-year-old woman with known history of cardiac disease including atrial fibrillation. She was hospitalized over a month ago with poorly controlled atrial dysrhythmias and felt to have a degree of heart failure as well. She had been at home, progressive weakness, fatigue, poor p.o. intake. Did have some nausea with emesis apparently as well. On evaluation, she was confirmed to have a positive COVID testing. In 02/2021, testing x2 was negative. Evaluation was notable for moderate pyuria. Urine culture now with growth of Escherichia coli, persistently elevated lactic acid 2-4 range, most recently had two blood cultures sterile thus far. Abdominal ultrasound unchanged from previous, nothing acute. Initial white count was elevated to 15. Currently, she is not requiring supplemental oxygen. It is more of unilateral pneumonitis, appeared to be chronic changes. ALLERGIES: HEPARIN. CURRENT MEDICATIONS: Include atenolol, ipratropium, albuterol inhaler, apixaban, aspirin, dexamethasone, ceftriaxone, amiodarone. PAST MEDICAL HISTORY: As described above, has known coronary artery disease with ischemic cardiomyopathy, atrial fibrillation, previous history of stroke with left-sided residual, hyperlipidemia, chronic renal insufficiency. SOCIAL HISTORY: Nonsmoker, no ethanol, no illicit drug use. FAMILY HISTORY: Noncontributory. REVIEW OF SYSTEMS: Otherwise unremarkable. PHYSICAL EXAMINATION: GENERAL: She appears chronically ill. She is moderately encephalopathic, [facility] [address] [place] [address] CONSULTATION Name: TONG TOTH Room #: 170-[facility] IN [facility]#: [id number] Admission: 04/28/21 Attend Phys: Mckenzie Flynn MD Discharge: Date of : 38 Report #: [id number] appears pale, moderate distress. SKIN: No rashes. VITAL SIGNS: Temperature 98.3, pulse 147 and irregular, respirations 22, blood pressure 131/91. SKIN: Warm. LUNGS: Few bilateral scattered coarse breath sounds. HEART: Irregular, tachycardic. I do not appreciate a murmur. ABDOMEN: Soft, otherwise nontender. There are no peritoneal signs. GENITOURINARY AND RECTAL: Deferred. LABORATORY DATA: Urine cultures described above, Escherichia coli greater than 10 to the 5th. Lactic acid most recently 2.0. Blood cultures sterile thus far. Electrolytes: Sodium 142, potassium 4.3, chloride 108, bicarbonate 21, anion gap of 13, BUN and creatinine 27 and 1.2, glucose of 204. AST of 17, ALT of 31, albumin 2.2, total protein 6.0. CT of the head, no acute process. Chest x-ray, left mid and lower lung infiltrate and effusion, chronic changes. Procalcitonin 5.21. ASSESSMENT AND PLAN: COVID-19 infection, complicated by early pneumonitis, likely a complicated urinary tract infection as well in addition to atrial fibrillation with controlled rate. We will adjust antimicrobial therapy. Continue ceftriaxone. Had previous urine culture with growth of E. coli that was susceptible. We will add remdesivir. She is quite tenuous at this point, would be concerned about clinical deterioration. In that event, would add baricitinib. Continue with supportive care, oxygen as required. <ELECTRONICALLY SIGNED> By: Bryan Colindres MD 04/30/21 0801 1031 1927 Bryan Colindres MD /nt
--- NOTE | 2021-04-30 12:17 | NUR ---
PT ADMITTED RELATED TO COVID, UTI, WEAKNESS. CM REVIEWED CHART AND SPOKE WITH CARE TEAM. CM CALLED AND SPOKE WITH PT'S SON CLAYTON . PT HAD BEEN ON 5N AND HAD DC'D HOME 03/28 WITH [facility]. SON INDICATED PT HAD STILL BEEN ON SERVICE WITH HH INCLUSION SPECIAL EDUCATOR AND HANK CONFIRMED. SON INIDCATED THAT PT HAD BEEN GETTING AROUND OK BUT THAT SHE HAD BECOME HOME SEDENTARY A FEW DAYS PRIOR TO ADMISSION HER LEGS SWELLED AND SHE WASN'T GETTING UP. HE INDICATED THAT SHE REFUSED USE OF FWW BUT HAD BEEN USING A CANE. PT HADN'T GONE HOME WITH O2 UPON LAST DC PT IS NOW ON 2L. SON INDICATED HE HASN'T TESTED FOR COVID BUT THAT HE FOUND OUT TWO PEOPLE FROM WORK HAD BEEN POSITIVE. HE WORKS 3-10 SHOTBLAST EQUIPMENT OPERATOR AND / SUPERVISION WAS TO BE ESTABLISHED BETWEEN HIM AND PT'S 5 SISTERS UPON DC FROM 5N BUT HE INDICATED THAT HADN'T WORKED OUT. CM INDICATED THAT PT HAD BEEN SEEN BY ST BUT THAT WE ARE AWAITING PT AND OT EVALS. CM ASKED IF HE ANTICPATED PT RETURNING HOME WITH RESUMPTION OF HH SERVICES OR IF HE THOUGHT THEY MIGHT BE INTERESTED IN POST ACUTE CARE STAY SON INDICATED HE WASN'T SURE PT WASN'T VERY PARTICIPATORY ON 5N AND HE WASN'T SURE SHE WOULD PARTICIPATE AGAIN STATING SHE CAN BE LAZY AND STUBORN. CM FOLLOWING REGARDING DC PLANNING.
--- NOTE | 2021-04-30 14:48 | NUR ---
WOUND CONSULT; THE PATIENT/WOUND TO THE BUTTOCKS REGION WAS ASSESSED. THE WOUND HAS S/S OF PRESSURE AND FRICTION. A STAGE 2 PRESSURE INJURY IS MOST ACCURATE. THE AREA MEAUSRES 4 X 4 X 0.1 TODAY. THERE IS ERYTHEMA AND SKIN BREAKDOWN WITH SCANT DRAINAGE. THE PATIENT WAS ABLE TO TURN HERSELF. RECOMMENDSTIONS; -APPLY ZGUARD, COVER WITH A SACRAL FOAM, CHANGE M/W/F PRN. -ADD LOW AIR LOSS BED PUMP WHEN TRANSFERED TO [facility]. -TURN Q2H DISCUSSED WITH RN.
[2021-04-30 16:03] VITALS: BP 134/84
[2021-04-30 19:17] VITALS: BP 106/69
[2021-04-30 19:23] VITALS: BP 143/95
[2021-04-30 23:25] VITALS: BP 147/93
[2021-05-01 02:53] VITALS: BP 147/93
[2021-05-01 03:24] VITALS: BP 136/91
[2021-05-01 06:35] LABS: HEMATOCRIT 43.3 % (37.0-47.0); HEMOGLOBIN 14.2 gm/dL (12.0-15.0); MCH 31.1 pg (26.0-34.0); MCHC 32.8 g/dL (28.0-37.0); MCV 94.9 fL (80.0-100.0); RBC 4.56 mil/uL (4.20-5.00); RDW 18.6 % (10.5-14.5); WBC 10.5 thou/uL (4.0-11.0)
--- NOTE | 2021-05-01 06:43 | NUR ---
Patient is alert and oriented x3 this shift. She is unsure of the date. Patient is CCTele with chronic AFIB. Patient is on enhanced precautions. Patient is on 1L of oxgen. Patient has a roberts in place that is patent. Patients urine is clear yellow. Patient takes pills whole one at a time. Paient has been turned Q2 hours as ordered. Patient has had zguard applied to buttocks as ordered. Patient has a Right subclavian triple lumen that is patent. Two lumens are saline locked and one is currently infusing with cefazolin. Patient will continue to be monitored.
[2021-05-01 06:53] LABS: ALBUMIN 2.2 g/dL (3.4-5.0); CALCIUM 8.2 mg/dL (8.5-10.1); CREATININE 1.1 mg/dL (0.6-1.0); PHOSPHORUS 3.7 mg/dL (2.5-4.9); TOTAL BILIRUBIN 1.4 mg/dL (0.2-1.0); TOTAL PROTEIN 5.8 g/dL (6.4-8.2)
[2021-05-01 11:44] VITALS: BP 116/89
[2021-05-01 15:19] VITALS: BP 126/94
--- NOTE | 2021-05-01 16:51 | NUR ---
DC planning needs discussed with pt's son gracia who is her primary support at home. He is currently at home sick with covid as well. He reports he picked it up at work from a positive coworker. He does not feel he can care for the pt at this time unless she is able to do more with therapy. SNF options discussed but may be limited due to covid+ status. Pt is vaccinated x 2 pzifer. He would be interested [facility] as it is close to their home. [facility] and [facility] in that order. PT eval is pending. SNF referral printed. Cm to fax in am once PT eval is completed. Pt is in enhanced ISO testing postive on 04/28/21 in the ER. CM to check with SNF's tomorrow to see which may have a bed for a covid pt. Will follow.
--- NOTE | 2021-05-01 18:08 | NUR ---
PT A/O X 3. PT HAS CONFUSION, NOT KNOWING THE DATE. PT COMPLAINED OF PAIN WHERE WOUND ON BUTTOCK IS. THIS RN CLEANED AND CHANGED WOUND DRESSING, ALONG WITH TOOK PICTURE AND PUT IN CHART. POSSIBLE DC ON THURSDAY (05/03). SPOKE WITH FMAILY AND UPDATED. NO CURRENT NEEDS. WILL CONTINUE TO MONITOR.
[2021-05-01 20:07] VITALS: BP 116/91
[2021-05-02 02:54] VITALS: BP 141/99
--- NOTE | 2021-05-02 04:07 | NUR ---
Slept fair during the night. She has been repositioned for comfort. Tolerating room air well with no respiratory distress. Cont. on enhanced precaution ,afebrile. Incontinent of bowel. Z guard applied to buttocks.
[2021-05-02 05:29] LABS: ALBUMIN 2.2 g/dL (3.4-5.0); CALCIUM 8.1 mg/dL (8.5-10.1); CREATININE 1.2 mg/dL (0.6-1.0); DIRECT BILIRUBIN 0.9 mg/dL (<0.1-0.2); PHOSPHORUS 3.6 mg/dL (2.5-4.9); POTASSIUM 3.7 mmol/L (3.5-5.1); TOTAL BILIRUBIN 2.7 mg/dL (0.2-1.0); TOTAL PROTEIN 5.7 g/dL (6.4-8.2)
[2021-05-02 07:46] VITALS: BP 125/86
[2021-05-02 12:07] VITALS: BP 157/117
--- NOTE | 2021-05-02 13:40 | NUR ---
SW reviewed chart and spoke with nursing and attending physician. Pt remains in Enhanced Isolation due to COVID. Pt is afebrile and on room air. Pt is on IV abx and IV steroids. Pt is progressing towards goals for discharge. Awaiting completion of PT eval in order to send SNF referrals. SW is following to assist as needed with discharge planning.
--- NOTE | 2021-05-02 14:49 | NUR ---
WOUND CARE F/U; THE PATIENTS WOUND TO THE SACRAL REGION IS STABLE AT THIS TIME. THE PATIENT IS HALLUCINATING REPORTS SEEING 3 SMALL GIRLS. THIS WAS REPORTED TO THE RN TODAY AND SHE WAS AWARE. THE WOUND HAS SOME ERYTHEMA BUT OTHERWISE UNREMARKABLE SINCE LAST ASSESSMENT. RECOMMENDATIONS; CONTINUE A SACRAL FOAM DREESSING AND Q2H TURNING. DISCUSSED WITH RN.
[2021-05-02 15:41] VITALS: BP 128/88
--- NOTE | 2021-05-02 18:10 | NUR ---
PT A/O X 2. PT MORE CONFUSED TODAY THAN YESTERDAY, AND LESS ORIENTED. PT STATES SHE CAN SEE PEOPLE IN ROOM THAT ARE NOT THERE. PT ON . CLEANED AND REDRESSED WOUND TODAY. POSSIBLE REHAB PLACEMENT ON THURSDAY. PT HAS MORALES PLACED, BUT THIS RN NOTICED PT HAD BEEN INCONTINENT OF BLADDER ON BED. THIS RN MADE SURE MORALES WAS PATENT, AND FLUSHED MORALES LINE. PT HAS BEEN DRY REST OF SHIFT. NO COMPLAINTS OF PAIN. WILL CONTINUE TO MONITOR.
[2021-05-02 20:30] VITALS: BP 144/98
[2021-05-03 04:26] VITALS: BP 124/96
--- NOTE | 2021-05-03 05:17 | NUR ---
continues on room air. mid to low 90's. needs encouraging with turns. denies pain. alert and orient x 3-4. confused comments at times. resting quietly tonight.
[2021-05-03 07:28] LABS: ALBUMIN 2.5 g/dL (3.4-5.0); CALCIUM 8.1 mg/dL (8.5-10.1); CREATININE 1.1 mg/dL (0.6-1.0); DIRECT BILIRUBIN 0.9 mg/dL (<0.1-0.2); POTASSIUM 3.4 mmol/L (3.5-5.1); TOTAL BILIRUBIN 1.6 mg/dL (0.2-1.0)
[2021-05-03 08:04] VITALS: BP 137/94
--- NOTE | 2021-05-03 09:20 | NUR ---
ROCHELLE reviewed chart. SW placed call to pt's son, Serge, to discuss SNF options. SW explained that the family's preference of SNFs all are not currently accepting COVID pts until in isolation for at least 10 days. ROCHELLE confirmed this with admissions liaisons at [facility]. SW discussed alternate SNF options of [facility] and [facility], both who can accept COVID pts prior to 10 days of isolation. Pt's son is agreeable with referrals to both SNFs for review. SW faxed referrals. SW notified Bowen at [facility] of new referral. ROCHELLE spoke with Suraj at [facility] to notify of new referral. Both SNFs to review pt's info. Pt is afebrile and on room air. Pt is on IV steroids. SW is following to assist as needed with discharge planning.
[2021-05-03 11:34] VITALS: BP 151/94
[2021-05-03 17:02] VITALS: BP 99/67
--- NOTE | 2021-05-03 18:33 | NUR ---
PATIENT IS ALERT AND ORIENTED X2 THIS SHIFT. SHE IS ON ENHANCED PREACAUTIONS. PATIENT IS ON ROOM AIR. GINAN IS CC/ TELE WITH A BUNDLE BRANCH BLOCK AND TACHYCARDIA. PATIENT IS ON ROOM AIR. PATIENTS LAST BM WAS THIS SHIFT. PATIENT HAS A MORALES IN PLACE THAT IS PATENT AND SHE HAS YELLOW URINE. PATIENT IS UP TIMES ONE ASSIST WITH A WALKER AND GAIT BELT. PATIENT TAKES MINIMAL STEPS WHEN TRANSFERRING FROM BED TO RELCINER AND RECLINER TO BED. PATIENT WAS GIVEN A BED BATH THIS SHIFT. LOTION WAS APPLIED LIBRALLY POST BATH. ZGUARD APPLIED TO BOTTOM POST BATH. EVAN HAS A RIGHT TRIPLE LUMEN SUBCLAVIAN. ALL THREE LUMENS ARE PATENT AND SALINE LOCKED. PATIENT WILL CONTINUE TO BE MONITORED.
[2021-05-03 19:39] VITALS: BP 139/97
--- NOTE | 2021-05-03 22:33 | NUR ---
PT SLEEPING IN BED. AWAKENS TO NAME, ALERT TO SELF AND SITUATION. PROVIDED AND ASSISTED WITH SNACK. MORALES TO CATALINA. BED ALARM ON. RIJ INTACT.
[2021-05-04 03:23] VITALS: BP 131/98
--- NOTE | 2021-05-04 03:42 | NUR ---
Able to state name and knows she is in the hospital. Tolerating room air well. Cont. on enhanced precaution, afebrile. A fib ,BBB per tele with controlled rate. Incont. of bm. She has been repositioned. Bordered foam intact on her buttocks. Making some progress towards care plan goals.
[2021-05-04 07:45] VITALS: BP 87/51
[2021-05-04 11:29] VITALS: BP 131/95
[2021-05-04 15:51] VITALS: BP 117/80
[2021-05-04 19:52] VITALS: BP 112/77
--- NOTE | 2021-05-04 21:55 | NUR ---
PT SLEEPING IN BED, EASILY AROUSED. PT SMILING AND TALKING WITH STAFF. ASSISTED WITH SNACK. LUNGS WITH WHEEZES, PALE SKIN TONE. MORALES TO DD. URINE TEA AND RED, DIFFERENT THAN YESTERDAY AND PROVIDER SEDIMENT REMEDIATION CONSULTANT NOTIFIED. UA TO BE OBTAINED. BED ALARM ON.
[2021-05-05 02:56] LABS: URINE BILIRUBIN NEGATIVE (Negative); URINE BLOOD 3+ (Negative); URINE CLARITY CLEAR; URINE COLOR YELLOW; URINE GLUCOSE-RANDOM* 1+ (Negative); URINE KETONES NEGATIVE (Negative); URINE LEUKOCYTES-REFLEX TRACE (Negative); URINE NITRITE-REFLEX NEGATIVE (Negative); URINE PROTEIN (DIPSTICK) NEGATIVE (Negative); URINE SPECIFIC GRAVITY 1.015 (1.005-1.035); URINE UROBILINOGEN 0.2 E.U./dl (0.2-1.0)
[2021-05-05 03:29] LABS: CASTS None Seen /LPF (None Seen); MUCUS None Seen strn/LPF (None Seen); SQUAMOUS None Seen /LPF (0-3)
[2021-05-05 03:30] LABS: AMORPHOUS URATES Moderate /LPF (None Seen); BACTERIA-REFLEX None Seen /HPF (None Seen); URINE RBC 3-10 Few /HPF (NONE SEEN); URINE WBC-REFLEX 6-15 Few /HPF (0-5); YEAST-REFLEX Present (None Seen)
[2021-05-05 04:50] VITALS: BP 106/68
[2021-05-05 07:12] LABS: HEMATOCRIT 42.8 % (37.0-47.0); MCH 30.9 pg (26.0-34.0); MCHC 32.9 g/dL (28.0-37.0); MCV 94.2 fL (80.0-100.0); RBC 4.54 mil/uL (4.20-5.00); WBC 9.6 thou/uL (4.0-11.0)
[2021-05-05 07:20] LABS: CALCIUM 8.1 mg/dL (8.5-10.1); CREATININE 0.8 mg/dL (0.6-1.0)
[2021-05-05 07:49] VITALS: BP 117/87
[2021-05-05 11:30] VITALS: BP 130/95
[2021-05-05 15:39] VITALS: BP 131/79
--- NOTE | 2021-05-05 18:28 | NUR ---
Patient is alert to self this shift. She appears to be slightly confused. Patient is on enhanced precautions. She is on room air. Bonita is CC/ Tele and has been afib this shift with a bundle branch block. Paients last BM was 05/04/21. Patient has only required quing this shift when eating meals. Patient has a roberts catheter in place that is patent. Patients urine is dark lauren in color. Patient encouraged to increase fluid intake. Patient has had zguard applied to her bottom as ordered this shift. Patient has a right triple lumen subclavian that is saline locked and patient. All three lumens have been flushed with good blood return twice this shift. Patient will continue to be monitored.
[2021-05-05 19:40] VITALS: BP 135/90
[2021-05-06 03:43] VITALS: BP 129/92
--- NOTE | 2021-05-06 05:25 | NUR ---
PT ON ROOM AIR THROUGHTOUT THE NIGHT. DENIED ANY COUGING. O2 SAT 94-96 ON SPOT CHECKS. LUNGS CTA T/O.
[2021-05-06 07:51] VITALS: BP 136/88
--- NOTE | 2021-05-06 09:54 | NUR ---
ROCHELLE reviewed chart. Pt is afebrile and on room air. Pt is on IV steroids. ROCHELLE left voice messages for Bowen at [facility] and Suraj at [facility] to follow up on SNF referral. Awaiting input from the facilities at this time. ROCHELLE is following to assist as needed with discharge planning.
--- NOTE | 2021-05-06 11:19 | NUR ---
WOUND CARE F/U; THE WOUND TO THE BUTTOCKS REGION LOOKS TOOLING ENGINEERING TECH TODAY. THE WOUND IS TENDER. WE HAVE EMPLOYED A LOW AIR LOSS PUMP SINCE THE AND HAS BEEN AN EFFECTIVE TREATMENT MODALITY. RECOMMENDATION: -CONTINUE CURRENT WOUND CARE TREATMENT/ORDERS.
[2021-05-06 11:45] VITALS: BP 129/94
[2021-05-06 15:22] VITALS: BP 125/87
--- NOTE | 2021-05-06 18:46 | NUR ---
Patient is alert to self. Patient has been confused this shift. Patient is on enhanced precautions. Patient is on room air. She is on CC/ Tele and has been running afib with a bundle branch block this shift. Patients last documented BM is 05/04/2021. Bonita has a roberts in place and she has dark lauren colored urine. Patients dressing to her bottom was changed by wound nurse this shift. Patient has been turned Q2 hours per order. When attempting to transfer patient to recliner per patients request patient refused to bear weight on her feet. Patient put in no effort for transferring. Patient decided to stay in her bed. Patient has a right triple lumen subclavian that is patent and saline locked. Patient will continue to be monitored.
[2021-05-06 19:25] VITALS: BP 158/99
[2021-05-07 03:50] VITALS: BP 137/102
[2021-05-07 04:06] VITALS: BP 142/98
[2021-05-07 04:34] LABS: CALCIUM 8.3 mg/dL (8.5-10.1); CREATININE 0.8 mg/dL (0.6-1.0); POTASSIUM 4.3 mmol/L (3.5-5.1)
[2021-05-07 04:35] LABS: HEMATOCRIT 44.9 % (37.0-47.0); HEMOGLOBIN 14.6 gm/dL (12.0-15.0); MCH 30.8 pg (26.0-34.0); MCHC 32.5 g/dL (28.0-37.0); MCV 94.6 fL (80.0-100.0); RBC 4.75 mil/uL (4.20-5.00); RDW 18.7 % (10.5-14.5); WBC 14.5 thou/uL (4.0-11.0)
--- NOTE | 2021-05-07 05:24 | NUR ---
PT ON ROOM AIR OVERNIGHT. LUNGS DIMINISHED THROUGHOUT. NO COUGH NOTED AND PT DENIED ANY SOA. SLEPT MUCH OF THE NIGHT.
[2021-05-07 09:01] VITALS: BP 141/93
[2021-05-07 11:15] VITALS: BP 105/77
--- NOTE | 2021-05-07 12:30 | NUR ---
ROCHELLE reviewed chart and spoke with nursing and attending physician. Pt remains in Enhanced Isolation due to COVID. Pt is afebrile and on room air. Pt is on IV steroids. ROCHELLE faxed clinical/therapy updates to [facility]. Confirmed with Gretchen in admissions, that they are able to accept pt tomorrow. Pt will be 10 days post her positive COVID test. ROCHELLE spoke with pt's son, Serge, via phone to provide update. Serge is aware and in agreement with discharge plan. ROCHELLE is following to assist as needed with discharge planning.
--- NOTE | 2021-05-07 14:52 | NUR ---
Patient is alert to self and place this shift. Patient appears to be confused and excessively tired. Patient is sometimes difficult to rouse. Patient is on enhanced precautions. Patient is on room air. Patient is CC/ Tele this shift and has been running AFIB with a BBB. Patients last BM was 05/04/21. Patient takes her pills whole with water Patient has a roberts catheter in place that is patent. Patient has dark colored urine. Patients roberts was flushed x2 this shift. Patient has dressing and zguard applied to her sacral area. Patient is turned Q2 hous as ordered. Patient as a right triple lumen subclavian that is patent and saline locked. Patient will continue to be monitored.
[2021-05-07 15:50] VITALS: BP 110/60
[2021-05-07 20:09] VITALS: BP 103/79
[2021-05-08 04:34] VITALS: BP 128/80
--- NOTE | 2021-05-08 05:07 | NUR ---
PT SLOWLY PROGRESSING TOWARD GOAL OF DISCHARGED, WHICH IS PLANNED FOR LATER TODAY TO SNF. PT DROWSY THIS SHIFT, ORIENTED TO PERSON AND PLACE. MORALES IN PLACE DRAINING ARON URINE WITH THICK SEDIMENT. FLUSHED X2, REMAINS PATENT WITH ADEQUATE OUTPUT. CHRONIC AFIB NOTED ON DIFFUSION FURNACE OPERATOR, RATES CONTROLLED, MOSTLY BETWEEN 100-120. PT REQUESTED TO GET UP TO CHAIR AT BEGINNING OF SHIFT, SAT UP IN CHAIR FOR APPROXIMATELY 2.5 HOURS, TOLERATED WELL, BEFORE RETURNING TO BED. WILL CONTINUE TO OBSERVE FOR CHANGES.
[2021-05-08 07:30] VITALS: BP 119/90
--- NOTE | 2021-05-08 11:22 | NUR ---
DISCHARGE NOTE: ROCHELLE reviewed chart and spoke with nursing and attending physician. Pt is medically stable for discharge to [facility] today. Pt is afebrile and on room air. ROCHELLE confirmed with Gretchen at [facility] that they are able to accept pt today. Gretchen requests [id number] code for admissions. ROCHELLE completed AP672I online. Code: [id number]. Gretchen arranged w/c van transportation for 1400 this afternoon. ROCHELLE updated pt's nurse and provided number for report. ROCHELLE left voice message for pt's son, Serge, to provide update. ROCHELLE notified attending physician of transportation time. Awaiting final discharge ppwk at this time. ROCHELLE is following to finalize discharge plan.
[2021-05-08 11:26] VITALS: BP 132/105
[2021-05-08] MEDS ORDERED: ATENOLOL 50MG T50 M1 PO (13:15)
[2021-05-08] MEDS ORDERED: ZINC SULFATE50 MG PO (13:15)
[2021-05-08] MEDS ORDERED: PEPCID20 MG PO (13:15)
[2021-05-08] MEDS ORDERED: PREDNISONE 20 M20 M1 PO (13:15)
[2021-05-08] MEDS ORDERED: ELIQUIS2.5 MG PO (13:15)
[2021-05-08] MEDS ORDERED: VITAMIN D325 MC2 PO (13:15)
[2021-05-08] MEDS ORDERED: ACEROLA C500 MG PO (13:15)
--- NOTE | 2021-05-08 13:48 | NUR ---
Patient is awake and alert. Patient knows who she is and she knows where she is. Patient is on enhanced precautions and on room air. Patient is CC/ Tele and has been running AFIB this shift. Patient has a catheter in place and it is patent with dark colored urine. Patients catheter has been flushed one time this shift. Patient has a dressing on her sacral area that was chanced per order. Zguard applied per order. Patient turned every two hours as ordered. Patient was given a bed bath this shift. Patient has a right triple lumen subclavian IV. All three lines are patent and saline locked. Patient will continue to be monitored.
== END 2021-05-08 14:20 | DRG 871 ==
LOC: ER 00:25 → 3W 04:34 → EROBS 04:34 → 3W 04-30 18:45
PROVIDERS: Emergency Medicine; Hospitalist; Nurse Practitioner Family; Specialist; ADMIT Internal Medicine; ATTEND Internal Medicine
DX: A41.9 Sepsis, unspecified organism (principal); U07.1 COVID-19; J12.82 Pneumonia due to coronavirus disease 2019; J96.01 Acute respiratory failure with hypoxia; G92.8 Other toxic encephalopathy; N30.01 Acute cystitis with hematuria; D68.9 Coagulation defect, unspecified; I48.21 Permanent atrial fibrillation; I50.20 Unspecified systolic (congestive) heart failure; I13.0 Hypertensive heart and chronic kidney disease with heart failure and stage 1 through stage 4 chronic kidney disease, or unspecified chronic kidney disease; E46 Unspecified protein-calorie malnutrition; E78.5 Hyperlipidemia, unspecified; I25.10 Atherosclerotic heart disease of native coronary artery without angina pectoris; I25.5 Ischemic cardiomyopathy; N18.30 Chronic kidney disease, stage 3 unspecified; R53.81 Other malaise; K80.80 Other cholelithiasis without obstruction; I27.20 Pulmonary hypertension, unspecified; B96.20 Unspecified Escherichia coli [E. coli] as the cause of diseases classified elsewhere; R74.01 Elevation of levels of liver transaminase levels; I07.1 Rheumatic tricuspid insufficiency; E87.6 Hypokalemia; Z95.2 Presence of prosthetic heart valve; Z95.1 Presence of aortocoronary bypass graft; Z88.8 Allergy status to other drugs, medicaments and biological substances; Z82.49 Family history of ischemic heart disease and other diseases of the circulatory system; Z79.82 Long term (current) use of aspirin; Z79.899 Other long term (current) drug therapy; Z91.19 Patient's noncompliance with other medical treatment and regimen; Z68.22 Body mass index [BMI] 22.0-22.9, adult
CPT/HCPCS: 10879

== ENCOUNTER 2021-05-27 12:57 | Inpatient (IN) | payer OTHER ==
[~2021-05-27] VITALS: Ht 154.9 cm; Wt 58.3 kg
[~2021-05-27 12:57] MED LIST changes: +ACEROLA C500 MG PO; +ATENOLOL 50MG T50 M1 PO; +ELIQUIS2.5 MG PO; +MEGESTROL40 MG/1 M1 PO; +PEPCID20 MG PO; +PREDNISONE 20 M20 M1 PO; +VITAMIN D325 MC2 PO; +ZINC SULFATE50 MG PO
[2021-05-27 13:00] VITALS: BP 106/70
[2021-05-27 13:44] LABS: HEMATOCRIT 40.3 % (37.0-47.0); HEMOGLOBIN 13.4 gm/dL (12.0-15.0); MCH 31.8 pg (26.0-34.0); MCHC 33.2 g/dL (28.0-37.0); MCV 95.7 fL (80.0-100.0); PLATELET COUNT 290 thou/uL (150-400); RBC 4.21 mil/uL (4.20-5.00); RDW 20.7 % (10.5-14.5); WBC 7.9 thou/uL (4.0-11.0)
[2021-05-27 14:02] LABS: ALBUMIN 2.4 g/dL (3.4-5.0); CALCIUM 8.1 mg/dL (8.5-10.1); CREATININE 0.8 mg/dL (0.6-1.0); DIRECT BILIRUBIN 1.7 mg/dL (<0.1-0.2); TOTAL BILIRUBIN 2.9 mg/dL (0.2-1.0); TOTAL PROTEIN 5.9 g/dL (6.4-8.2)
[2021-05-27 14:08] LABS: ABSOLUTE NEUTROPHILS 6.2 thou/uL (1.4-8.2); METAMYELOCYTES 1 %
[2021-05-27 14:09] LABS: ANISOCYTOSIS 1+
--- NOTE | 2021-05-27 14:49 | EKG ---
[place] [facility] [place] [address] ELECTROCARDIOGRAM REPORT Name: TONG TOTH Room #: [facility]#: [id number] Admission: 05/27/21 Attend Phys: Discharge: Date of : 36 Report #: [id number] [facility] ED Test Date: 2021-05-27 Test Time: 13:24:28 Pat Name: TONG TOTH Department: Room: Gender: F Chop Saw Operator: : 1940 Requested By: Tavon Tomas Order Number: [id number] MD: Felipe Pepper Measurements Intervals Calvin Rate: 116 P: [place]: QRS: -52 QRSD: 140 T: -4 QT: 383 QTc: 533 Interpretive Statements Atrial fibrillation RBBB Compared to ECG 04/28/2021 00:54:43 Left anterior fascicular block now present Electronically Signed On 05-27-2021 14:49:38 ROTARY FURNACE TENDER by Felipe Pepper [email or web address] <ELECTRONICALLY SIGNED> By: Felipe Pepper MD, [facility] 05/27/21 1449 1324 1324 Felipe Pepper MD, FACC /EPI
[2021-05-27 16:50] LABS: URINE BLOOD 3+ (Negative); URINE GLUCOSE-RANDOM* TRACE (Negative); URINE KETONES TRACE (Negative); URINE LEUKOCYTES-REFLEX TRACE (Negative); URINE PROTEIN (DIPSTICK) 1+ (Negative); URINE SPECIFIC GRAVITY 1.025 (1.005-1.035)
[2021-05-27 16:55] LABS: ICTOTEST (BILI CONFIRMATORY) Negative (Negative); URINE BILIRUBIN NEGATIVE (Negative); URINE CLARITY HAZY; URINE COLOR BROWNISH; URINE NITRITE-REFLEX POSITIVE (Negative)
[2021-05-27 17:00] LABS: SQUAMOUS 4-10 Moderate /LPF (0-3)
[2021-05-27 17:01] LABS: URINE RBC 3-10 Few /HPF (NONE SEEN); URINE WBC-REFLEX 0-5 Rare /HPF (0-5)
[2021-05-27 17:02] LABS: BACTERIA-REFLEX 1-9 Few /HPF (None Seen)
[2021-05-27 17:03] LABS: CASTS None Seen /LPF (None Seen); CRYSTALS None Seen /LPF (None Seen); YEAST-REFLEX Present (None Seen)
[2021-05-27 18:14] VITALS: BP 89/63
[2021-05-27 18:17] VITALS: BP 92/62
[2021-05-27 18:41] VITALS: BP 114/60
[2021-05-27 20:52] VITALS: BP 116/84
[2021-05-27 23:50] VITALS: BP 126/73
--- NOTE | 2021-05-28 04:55 | NUR ---
This RN assumed care of patient at approximately 1900. Patient is alert and oriented x4 but appears to be confused. Patient is very drousy. Patient is on enhanced precautions. Patient is on room air. Patient is cc/ tele and has been running afib this shift. Patient is NPO at this time. Patient has a roberts in place with dark tea colored urine. Patient has skin break down on her sacrum. Area is cleaned, dressing is applied, and picture is taken per protocol and placed in chart. Patient has been turned Q2 hours per protocol completely off of her botom. Consult for wound care has been put in. Request for pressure prevention boots has been put in. Patient has an IV in her left ac that is patent and crrently infusing with D5 NS at 125 mL/ hr. Patient will continue to be monitored.
[2021-05-28 05:16] VITALS: BP 113/68
[2021-05-28 07:48] VITALS: BP 115/67
[2021-05-28 10:23] VITALS: BP 115/67
[2021-05-28 10:59] VITALS: BP 103/61
--- NOTE | 2021-05-28 11:59 | NUR ---
INITIAL ASSESSMENT: Received consult. ROCHELLE reviewed chart and spoke with nursing and attending physician. Pt was admitted from [facility] due to sepsis. Pt was discharged to [facility] on 05/08/2021. Pt with hx of COVID. Pt had first positive COVID test on 04/28/2021. Enhanced Isolation has been discontinued today. Pt is on IV abx. Wound care and pulmonary consulted. Pt with hx of A-fib. ROCHELLE was notified that pt's family is wanting to consider alternate placement upon discharge. ROCHELLE left voice message for pt's son, Serge. Awaiting call back to discuss alternate placement options. ROCHELLE is following to assist as needed with discharge planning.
[2021-05-28 16:01] VITALS: BP 94/52
--- NOTE | 2021-05-28 17:18 | NUR ---
PT IS A/O X 3, WITH CONFUSION. PT HAS SLEPT ALL DAY, AND IS IRRITABLE WHEN WOKEN UP. PT REFUSED THERAPY TODAY. ON RA. VSS. A FIB. PT REPOSITIONED FREQUENTLY DUE TO PRESSURE WOUNDS. PT OFF ISOLATION TODAY (05/28/21). NO COMPLAINTS OF PAIN. WILL CONTINUE TO MONITOR.
[2021-05-28 19:12] VITALS: BP 98/65
[2021-05-29] VITALS (7 sets, daily range): BP systolic 100–182; BP diastolic 52–81
--- NOTE | 2021-05-29 06:13 | NUR ---
Patient has been alert and oriented x4 this shift. She has moments of forgetfulness. Patient is on room air. Patient is cc/ tele and has run afib this shift. patient has had two brown loose bm's this shift. patient has a roberts catheter in place with lauren colored urine. patient has an iv in her left ac that is patent and currently infusing with D5 0.45% NS. Patients heel protector puts were put on this shift. Patients airloss pump for the mattres was put in place this shift. Patient has boardered foam dressing put in place this shift. Patient has been turned Q2 hours side to side. Patient as not been placed on her back this shift. Patient makes no complaints of pain/ discomfort/ nausea/ ect this shift. Patient will continue to be monitored.
--- NOTE | 2021-05-29 09:21 | NUR ---
ROCHELLE reviewed chart. Pt remains on IV abx. ROCHELLE left voice messages for pt's son, Serge and dtr, Rosalba, this morning to discuss discharge planning. Pt was admitted to [facility] from [facility]. Family interested in finding alternate placement. Awaiting call back from family at this time. ROCHELLE is following to assist as needed with discharge planning.
--- NOTE | 2021-05-29 17:51 | NUR ---
ASSUMED CARE FOR PT THIS AM. PT A/O X 2. PT HAS CONFUSION AND IS IRRITABLE WITH STAFF WHEN SLEEP IS INTERRUPTED. COMPLETED WOUND CARE AND DRESSING CHANGE THIS SHIFT. PT PUT ON REGULAR DIET, PT HAS POOR INTAKE. A FIB. NO COMPLAINTS OF PAIN. FALL PRECAUTIONS IN PLACE. WILL CONTINUE TO MONITOR.
[2021-05-30 04:01] VITALS: BP 133/88
[2021-05-30 04:52] LABS: CALCIUM 7.6 mg/dL (8.5-10.1); CREATININE 0.8 mg/dL (0.6-1.0)
[2021-05-30 05:03] LABS: POTASSIUM 2.7 mmol/L (3.5-5.1)
[2021-05-30 07:20] VITALS: BP 122/70
[2021-05-30 13:00] VITALS: BP 94/66
--- NOTE | 2021-05-30 13:33 | NUR ---
ROCHELLE reviewed chart and spoke with nursing and attending physician. Pt is progressing towards goals for discharge. Pt is on IV abx. Awaiting input from pulm regarding possible thoracentesis. ROCHELLE followed up with [facility] Both [facility] to accept pt. Pt will be into her copay days for skilled. [facility] spoke with pt's son, Serge, to discuss copay ($194.50) per day. Serge is agreeable with copay and is taking the payment to the facility today. ROCHELLE updated [facility] post-acute liaison. ROCHELLE notified attending physician of SNF acceptance. ROCHELLE left voice message for pt's son, Serge, to provide update. ROCHELLE is following to assist as needed with discharge planning.
[2021-05-30 15:00] VITALS: BP 135/81
--- NOTE | 2021-05-30 18:39 | NUR ---
PT A/O X 2. FAMILY AT BEDSIDE. FAMILY REQUESTS PT "GET UP AND MOVING EVERYDAY". THIS RN SPOKE WITH FAMILY ABOUT REALISTIC EXPECTATIONS. TOLD FAMILY PT REFUSES THERAPY FREQUENTLY. PT HR 120'S-140'S THIS AM, GIVEN MEDICATION PER DR ORDERS. CRITICAL POTASSIUM LAB, LABRATORY ATTEMPTED POTASSIUM DRAW X 2 AND WERE UNSUCCESSFUL. CHANGED DRESSING ON PT WOUND AND TURNING FREQUENTLY. FALL PRECAUTIONS IN PLACE. WILL CONTINUE TO MONITOR.
[2021-05-30 20:00] VITALS: BP 121/68
[2021-05-31 07:48] VITALS: BP 126/73
[2021-05-31 12:06] VITALS: BP 124/75
--- NOTE | 2021-05-31 14:38 | NUR ---
ROCHELLE reviewed chart and spoke with nursing and attending physician. Pt is progressing towards goals for discharge. Awaiting culture results at this time. Possible weekend discharge to [facility]. Attending physician to call pt's son to provide update and discuss plan of care. ROCHELLE notified Linda and Shlomo at [facility], who confirm they are able to accept pt over the weekend. Staff to call Linda to coordinate discharge. Discharge ppwk will need to be faxed to the facility. ROCHELLE left voice message for pt's son, Serge, to provide update and notify of possible weekend discharge. Chart copy will be needed. ROCHELLE is following and available to assist as needed with discharge planning. [facility]-- Linda (admissions) [phone]
--- NOTE | 2021-05-31 16:41 | NUR ---
VAT ATTEMPTED HAYES ML ,VESSELS TOO SMALL UNABLE TO INSERT NEEDLE. PIV STARTED WITH #20G
[2021-05-31 16:44] VITALS: BP 99/67
[2021-05-31 16:46] VITALS: BP 113/59
--- NOTE | 2021-05-31 17:54 | NUR ---
assumed care of pt at 0700. pt alert to self and place. no apparent distress. breathing comfortably on room air. sleeping most of shift, not wanting to be bothered by staff. cooperative with meds. not wanting to work with therapy. ivf infusing per order. vitals stable. no other changes to report.
[2021-05-31 19:41] VITALS: BP 123/85
[2021-06-01 02:25] VITALS: BP 126/72
[2021-06-01 07:07] VITALS: BP 107/74
--- NOTE | 2021-06-01 07:32 | NUR ---
PROGRESS PT SLEEPING MOST OF SHIFT BUT WAKES EASILY AND FOLLOWS COMMANDS TOOK MEDS PO WITHOUT DIFFICULTY HAD A FEW DRINKS OF WATER WITH ENCOURAGEMENT. MORALES INTACT DRAINING SMALL AMOUNT OF CLOUDY DARK URINE. IV TO HAYES INFUSING INTERMITTENT ABT'S ORDERED. CONTINUE POC.
[2021-06-01 11:32] VITALS: BP 141/119
[2021-06-01 11:36] VITALS: BP 109/66
[2021-06-01 15:35] VITALS: BP 120/69
[2021-06-01 20:51] VITALS: BP 112/87
[2021-06-02 03:11] VITALS: BP 121/81
--- NOTE | 2021-06-02 07:15 | NUR ---
PROGRESS PT ALERT TO SELF, PLEASANT AND COOPERATIVE. SLEEPS MOST OF THE TIME BUT WAKES EASILY ON COMMAND. TAKES SIPS OF WATER WHEN OFFERED. MORALES CATHETER IN PLACE DRAINING MODERATE AMOUNTS OF URINE. REPOSITIONED THROUGHOUT NOC, PRAFO BOOTS IN PLACE CONTINUE PLAN OF CARE.
[2021-06-02 07:59] VITALS: BP 134/68
[2021-06-02 09:40] VITALS: BP 134/68
[2021-06-02] MEDS ORDERED: CEFUROXIME250 MG PO (10:50)
[2021-06-02] MEDS ORDERED: FLOMAX0.4 MG PO (10:55)
--- NOTE | 2021-06-02 12:32 | NUR ---
PT DISCHARGING TO [facility] FAXED DC ORDERS/SUMMARY RECEIVED CONFIRMATION AND SPOKE WITH WILLY IN ADM SHE ARRANGED TRANSPORT BY [facility] FOR [id number] TODAY. LEFT MSG WITH PT'S DTR (ROSA) WITH TIME OF TRANSPORT UNIT NOTIFIED AND CHART COPY PER US. RN TO CALL REPORT TO [phone].
--- NOTE | 2021-06-02 15:43 | NUR ---
DISCHARGE NOTE: GIVEN DISCHARGE PAPERWORK, WENT OVER UPCOMING APPOINTMENTS, AND GIVEN SCRIPTS. IV AND TELEMETRY DC'D. ALL BELONGINGS WITH PT. PT IS TO DC TO [facility]IA [facility]. LEFT UNIT APPROX 1545. WOUND CARE GIVEN BEFORE DISCHARGE.
--- NOTE | 2021-06-02 15:50 | NUR ---
REPORT JUST GIVEN TO FRANKIE AT [facility]. MORALES KEPT IN PER DR MEDEROS VERBAL ORDERS.
== END 2021-06-02 15:56 | DRG 871 ==
LOC: ER 12:57 → EROBS 18:12 → 3W 18:12
PROVIDERS: Emergency Medicine; Student in an Organized Health Care Education/Training Program; ADMIT Hospitalist; ATTEND Hospitalist
DX: A41.9 Sepsis, unspecified organism (principal); L89.153 Pressure ulcer of sacral region, stage 3; E43 Unspecified severe protein-calorie malnutrition; J18.9 Pneumonia, unspecified organism; J86.9 Pyothorax without fistula; N39.0 Urinary tract infection, site not specified; I48.21 Permanent atrial fibrillation; N18.9 Chronic kidney disease, unspecified; I25.10 Atherosclerotic heart disease of native coronary artery without angina pectoris; E78.5 Hyperlipidemia, unspecified; I12.9 Hypertensive chronic kidney disease with stage 1 through stage 4 chronic kidney disease, or unspecified chronic kidney disease; I25.5 Ischemic cardiomyopathy; R33.9 Retention of urine, unspecified; Z86.16 Personal history of COVID-19; K56.41 Fecal impaction; R53.81 Other malaise; F03.90 Unspecified dementia, unspecified severity, without behavioral disturbance, psychotic disturbance, mood disturbance, and anxiety; Z95.1 Presence of aortocoronary bypass graft; Z88.8 Allergy status to other drugs, medicaments and biological substances; Z68.24 Body mass index [BMI] 24.0-24.9, adult
CPT/HCPCS: 10080; 10879